=== PATIENT | male | born 1950 | race Caucasian/White ===

== ENCOUNTER → 2018-08-07 09:01 | Outpatient (CLI) | payer OTHER, SELFPAY ==
--- NOTE | 2018-08-07 | DI.MRI.S_ITS ---
PROCEDURE: MR KNEE RT WO CON INDICATIONS: UNILATERAL PRIMARY OSTEOARTHRITIS OF RIGHT KNEE TECHNIQUE: Noncontrast sagittal PD fast spin echo and T2 fast spin echo with fat saturation, sagittal 3-D FLASH with fat saturation; coronal T1 spin echo and PD fast spin echo with fat saturation, and axial PD fast spin echo with fat saturation through the knee. COMPARISON: [facility], CR, XR KNEE ARTHRITIC SERIES BI, 07/23/2018, 10:00. Located Within [facility], , KNEE 3V RIGHT, 07/18/2016, 11:41. FINDINGS: Image quality: Excellent. Menisci: There is medial extrusion of the medial meniscus. There is amorphous signal intensity within the anterior horn, body, and posterior horn of the medial meniscus, demonstrating superior and inferior articular surface extension, indicating severe degenerative tearing. There is linear high signal intensity horizontally traversing the anterior horn lateral meniscus, demonstrating there is extension, indicating horizontal tearing. Cruciate ligaments: The posterior cruciate ligament is intact. There is high-grade partial-thickness tearing of the anterior cruciate ligament. Medial structures: The medial collateral ligament appears intact. There is a small amount of fluid deep to the medial collateral ligament. Visualized portions of the pes anserinus tendons appear normal. Small amount of medial bursal fluid. Lateral structures: The lateral collateral ligament demonstrates a small amount of fluid signal adjacent to its femoral insertion. The long and short heads of the biceps femoris tendon appear intact. The popliteus tendon appears normal. Iliotibial band appears normal. Anterior structures: The quadriceps and patellar tendons appear intact. Mild superolateral patellar subluxation is present. No femoral trochlear dysplasia or ventral trochlear prominence. Moderate edema in the superolateral aspect of the the infrapatellar fat pad. Bones and cartilage: No bone marrow contusions or fractures. There is moderate tricompartmental periarticular osteophyte formation. There is mild ill-defined cooperative we degenerative marrow edema within the subchondral aspects of the medial tibial plateau, central, and lateral tibial plateau, as well as the lateral patellar facet. Severe diffuse articular cartilage loss diffusely overlies the weightbearing aspects of the medial femoral condyle and medial tibial plateau. Mild diffuse articular cartilage loss overlies the weightbearing aspects of the lateral femoral condyle and lateral tibial plateau, as well as the medial and lateral patellar facets. Joint space: There is a small knee joint effusion and a moderate George's cyst. Multiple intra-articular loose bodies are present, the largest of which measures roughly 10 mm within the George's cyst. Normal appearing synovial plicae are incidentally noted. IMPRESSION: 1. Tricompartmental osteoarthritis with associated articular cartilage loss as described above. 2. Severe degenerative tearing of the medial meniscus. 3. Horizontal tearing of the lateral meniscus. 4. Partial-thickness high-grade anterior cruciate ligament tearing. 5. Knee joint effusion, George's cyst, and intra-articular loose bodies 6. Findings consistent with lateral patellofemoral friction syndrome in the appropriate clinical setting. 7. Mild medial bursitis. 8. Mild medial collateral ligament bursitis. 9. Partial-thickness lateral collateral ligament tear. Dictated by: Estela Sepulveda M.D. on 08/07/2018 at 10:29 Approved by: Estela Sepulveda M.D. on 08/07/2018 at 10:43
== END ==
PROVIDERS: PCP Family Medicine; Visit Provider Orthopaedic Surgery
DX: M17.11 Unilateral primary osteoarthritis, right knee (principal); M23.231 Derangement of other medial meniscus due to old tear or injury, right knee; M23.261 Derangement of other lateral meniscus due to old tear or injury, right knee; M23.611 Other spontaneous disruption of anterior cruciate ligament of right knee; M25.461 Effusion, right knee; M71.21 Synovial cyst of popliteal space [Baker], right knee; M23.641 Other spontaneous disruption of lateral collateral ligament of right knee; M71.561 Other bursitis, not elsewhere classified, right knee
CPT/HCPCS: 73721

== ENCOUNTER 2018-09-07 19:10 | Emergency (ER) | payer OTHER, SELFPAY ==
[2018-09-07 19:15] VITALS: BP 120/75; PULSE 87; RESP 15; TEMP 38; O2SAT 94; BMI 31.2
--- NOTE | 2018-09-07 19:19 | DI.RAD.S_ITS ---
PROCEDURE: XR CHEST 2V INDICATIONS: uri sx,fever,cough TECHNIQUE: 2 views of the chest were acquired. COMPARISON: None. FINDINGS: Surgical changes and devices: None. Lungs and pleura: No pleural effusions or pneumothorax. Mild bilateral perihilar pulmonary opacities are noted. There is prominence of the pulmonary arteries bilaterally. Mediastinum: Mediastinal contours are normal. Heart size is normal. Bones and chest wall: No suspicious bony abnormalities. Soft tissues appear unremarkable. IMPRESSION: Mild bilateral perihilar pulmonary opacities favored to represent atelectasis, less likely pneumonia. Dictated by: Ha Vinson M.D. on 09/07/2018 at 21:32 Approved by: Ha Vinson M.D. on 09/07/2018 at 21:34
--- NOTE | 2018-09-07 19:55 | ED_ITS ---
HPI - URI/Sore Throat <NATE Rivera - Last Filed: 09/07/18 22:30> General Chief Complaint: Upper Respiratory Symptoms Stated Complaint: FEVER WEAKNESS Time Seen by Provider: 09/07/18 19:54 Source: patient Mode of arrival: ambulatory Limitations: no limitations History of Present Illness HPI Narrative: 68-year-old male with history of [place] that is a nonsmoker here for complaint of having generalized malaise over the past 4-5 days. He does report of her low-grade fever and generalized body aches. He has had cough and nasal congestion. He is tolerating p.o. fluid intake although he has decreased appetite. His cough has been nonproductive. He denies other illnesses with contact her family members. He denies any chest pain. Related Data Home Medications Medication Instructions Recorded Confirmed aspirin 81 mg tablet,delayed 81 mg PO DAILY 09/07/18 09/07/18 release atorvastatin 40 mg tablet 40 mg PO DAILY 09/07/18 09/07/18 losartan 25 mg tablet 25 mg PO DAILY 09/07/18 09/07/18 metoprolol succinate ER 50 mg 50 mg PO DAILY 09/07/18 09/07/18 tablet,extended release 24 hr Allergies Allergy/AdvReac Type Severity Reaction Status Date / Time No Known Drug Allergies Allergy Verified 09/07/18 19:15 Review of Systems <NATE Rivera - Last Filed: 09/07/18 22:30> Constitutional Denies chills, Reports fever(s), Denies lethargy and Denies weakness Eyes Denies change in vision, Denies eye discharge, Denies irritation and Denies loss of vision ENT Ears, Nose, Mouth, and Throat: Reports nasal congestion Cardiovascular Denies chest pain, Denies irregular heart rhythm, Denies lightheadedness, Denies palpitations, Denies dyspnea, Denies dyspnea on exertion and Denies orthopnea Respiratory Denies cough, Denies dyspnea, Denies dyspnea on exertion and Denies wheezing Gastrointestinal Gastrointestinal: Denies abdominal pain, Denies change in bowel habits, Denies diarrhea, Denies nausea and Denies vomiting Genitourinary Denies hematuria, Denies flank pain, Denies urinary incontinence and Denies urinary urgency Musculoskeletal Denies back pain, Denies muscle weakness, Denies numbness and Denies tingling Integumentary/Breasts Denies pruritus, Denies erythema, Denies rash and Denies wounds Neurologic Denies confusion, Denies loss of vision, Denies numbness, Denies tingling and Denies weakness Psychiatric Denies anxiety, Denies confusion, Denies depression, Denies homicidal ideation and Denies suicidal ideation Endocrine Denies palpitations Hematologic/Lymphatic Denies easy bruising Allergic/Immunologic Denies wheezing Exam <NATE Rivera - Last Filed: 09/07/18 22:30> Initial Vital Signs Initial Vital Signs: Vital Signs Temperature 100.4 F H 09/07/18 19:15 Pulse Rate 87 09/07/18 19:15 Respiratory Rate 15 09/07/18 19:15 Blood Pressure 120/75 09/07/18 19:15 Pulse Oximetry 94 09/07/18 19:15 Const General: cooperative and well developed Nutritional Appearance: well nourished Orientation: alert, awake, oriented x3 and not confused HENNH Head: normocephalic and atraumatic Nose: external nose normal and No nasal discharge Face and sinus: sinus tenderness and dry mucous membranes Mouth: oral mucosae normal and moist mucous membranes Teeth and gingiva: dentition normal Throat: posterior oropharynx normal Eyes Conjunctivae: conjunctivae normal Sclera: sclerae normal Pupils: PERRL EOM: EOM intact bilaterally Resp Effort & Inspection: normal respiratory effort, able to speak in complete sentences, no respiratory distress and no use of accessory muscles Auscultation: clear to auscultation bilaterally, no rales, no rhonchi and no wheezes Cardio Rate: regular rate Rhythm: regular rhythm Heart Sounds: no click, no gallops, no murmurs and no rubs Pulses: normal peripheral pulses Skin General: no rashes or lesions noted, No jaundice and No petechiae Neuro General: alert, oriented x3, gait normal and no focal motor deficits Speech: speech normal <Monroe Swan MD - Last Filed: 09/08/18 05:09> Initial Vital Signs Initial Vital Signs: Vital Signs Temperature 100.4 F H 09/07/18 19:15 Pulse Rate 87 09/07/18 19:15 Respiratory Rate 15 09/07/18 19:15 Blood Pressure 120/75 09/07/18 19:15 Pulse Oximetry 94 09/07/18 19:15 Course <NATE Rivera - Last Filed: 09/07/18 22:30> Orders Ordered: ED Orders 09/07/18 19:19 XR chest 2V Stat Influenza A and B by PCR Rapid Stat Vital Signs - 8 hr 09/07/18 21:30 09/07/18 22:07 Pulse Rate 89 72 Respiratory Rate 20 18 Blood Pressure 111/54 L Blood Pressure [Left Arm] 111/59 L Pulse Oximetry 99 94 <Monroe Swan MD - Last Filed: 09/08/18 05:09> Orders Ordered: ED Orders 09/07/18 19:19 XR chest 2V Stat Influenza A and B by PCR Rapid Stat Vital Signs - 8 hr 09/07/18 21:30 09/07/18 22:07 Pulse Rate 89 72 Respiratory Rate 20 18 Blood Pressure 111/54 L Blood Pressure [Left Arm] 111/59 L Pulse Oximetry 99 94 MDM - URI/Sore Throat <NATE Rivera - Last Filed: 09/07/18 22:30> Lab Data Lab Results 09/07/18 Range/Units 19:19 Influenza A & B (PCR) Positive, type a A (Negative) Imaging Data Chest x-ray: Radiologist's impression: [place] [address] XRay Report Signed Patient: Louie Rodriguez JMR#: [id number] : 1950Acct:[id number] Age/Sex: 68 / MDate of Service: 09/07/18 Loc: ED Accession Number: [id number] Procedure: XR chest 2V Ordering Provider: Monroe Swan M.D. PROCEDURE: XR CHEST 2V INDICATIONS: uri sx,fever,cough TECHNIQUE: 2 views of the chest were acquired. COMPARISON: None. FINDINGS: Surgical changes and devices: None. Lungs and pleura: No pleural effusions or pneumothorax. Mild bilateral perihilar pulmonary opacities are noted. There is prominence of the pulmonary arteries bilaterally. Mediastinum: Mediastinal contours are normal. Heart size is normal. Bones and chest wall: No suspicious bony abnormalities. Soft tissues appear unremarkable. IMPRESSION: Mild bilateral perihilar pulmonary opacities favored to represent atelectasis, less likely pneumonia. Dictated by: Ha Vinson M.D. on 09/07/2018 at 21:32 Approved by: Ha Vinson M.D. on 09/07/2018 at 21:34 [facility] Narrative Medical decision making narrative: Chest x-ray was obtained was negative for signs of pneumonia. Flu swab was obtained and was positive for flu A. Signs and symptoms secondary to a influenza. illness over the past 4-5 days will not give and antivirals at this time. [id number] Tylenol Motrin as needed for any disco mfort. Zofran is prescribed to help with any nausea. Plenty of fluids and rest. Follow up with primary care provider 1 week. For any worsening symptoms return to the emergency room. <Monroe Swan MD - Last Filed: 09/08/18 05:09> Lab Data Lab Results 09/07/18 Range/Units 19:19 Influenza A & B (PCR) Positive, type a A (Negative) Discharge Plan Departure Patient Disposition: Home Clinical Impression: Influenza A Discharge Date/Time: 09/07/18 22:08 Interventions: ED Discharge Assessment Last Done: 09/07/18 22:07 Instructions: DI for Influenza -- Adult Activity Restrictions/Additional Instructions: chest x-ray was obtained was negative for pneumonia. Influenza swab was obtained and was positive for influenza A. Signs and symptoms are secondary to the influenza. Influenza will take time to resolve. Supportive care with plenty of fluids and rest. [id number] Tylenol or Motrin as needed for discomfort and fever. Saline irrigation and hot showers to help with nasal congestion. Follow up with her primary care provider in 1 week for re- evaluation. Limit exposure to other people to prevent spread. For any worsening symptoms return emergency room. Prescriptions: No Action atorvastatin 40 mg tablet 40 mg PO DAILY RF: 0 metoprolol succinate 50 mg tablet extended release 24 hr 50 mg PO DAILY RF: 0 aspirin [Adult Low Dose Aspirin] 81 mg tablet,delayed release (DR/EC) 81 mg PO DAILY RF: 0 losartan 25 mg tablet 25 mg PO DAILY RF: 0 Referrals: Dick Jara MD [Primary Care Provider] - <Monroe Swan MD - Last Filed: 09/08/18 05:09> Cosign ED Attending Cosignature Attestation: I was present in the ER at the time this patient's care. I was available for verbal consultation or to see the patient directly if requested. I agree with the assessment and treatment plan.
[2018-09-07 20:30] VITALS: BP 120/64; PULSE 80; RESP 22; O2SAT 92
[2018-09-07 21:30] VITALS: BP 111/59; PULSE 89; RESP 20; O2SAT 99
[2018-09-07 22:07] VITALS: BP 111/54; PULSE 72; RESP 18; O2SAT 94
== END 2018-09-07 22:08 | disposition home or self-care (01) ==
PROVIDERS: Emergency Medicine; Emergency Provider Nurse Practitioner Family; PCP Family Medicine
DX: J10.1 Influenza due to other identified influenza virus with other respiratory manifestations (principal)
CPT/HCPCS: 71046; 87400; 99282; 99284

== ENCOUNTER 2018-09-14 10:08 | Inpatient (IN) | payer OTHER, SELFPAY ==
[2018-09-14] VITALS (17 sets, daily range): BP systolic 88–134; BP diastolic 53–89; PULSE 73–802; RESP 14–79; TEMP 36.1–36.7; O2SAT 90–99; BMI 29.4; BMI 29.2
--- NOTE | 2018-09-14 10:15 | DI.RAD.S_ITS ---
PROCEDURE: XR CHEST 1V INDICATIONS: dyspnea, recent flu A TECHNIQUE: One view of the chest was acquired. COMPARISON: [facility], CR, XR CHEST 2V, 09/07/2018, 19:22. FINDINGS: Surgical changes and devices: None. Lungs and pleura: Interval patchy opacities are present overlying the right middle lobe as well as the lingula. Coarsened bibasilar opacities are present. Minimal increased vascularity. Mediastinum: Mediastinal contours appear normal. Heart size is normal. Bones and chest wall: No suspicious bony lesions. Overlying soft tissues appear unremarkable. IMPRESSION: Interval development of patchy bilateral and bibasilar coarsened opacities. This could represent infection/inflammation such as multifocal pneumonia. However, it is noted there is mild appearance of increased pulmonary vascularity. This could also represent focal edema. Recommend clinical correlation and interval followup to document resolution and exclude presence of underlying mass lesion. Dictated by: Dayana Andrade M.D. on 09/14/2018 at 10:44 Approved by: Dayana Andrade M.D. on 09/14/2018 at 10:45
[2018-09-14 10:35] LABS: pH ABG 7.55 (7.35-7.45)
[2018-09-14 10:36] LABS: Fractionated Inspired Oxygen 0.21; HCO3 ABG 19 mmol/L (22-26); Oxygen Saturation ABG 96 % (95-100); PCO2 ABG 21.8 mmHg (35-45); PO2 ABG 67 mmHg (80-100); TCO2 ABG 20 mmol/L (21-31)
[2018-09-14] MEDS: levoFLOXacin 750 MG/150 ML PIGGYBACK 100 MG IV (10:41)
[2018-09-14] MEDS: SODIUM CHLORIDE 0.9% 1,000 ML 1000 ML IV (10:42)
[2018-09-14 10:43] LABS: Add Manual Diff / Slide Review NO; Basophils Percent Auto 0.5 % (0-2); Eosinophils Percent Auto 0.1 % (2-4); Hemoglobin 16.1 g/dL (13.5-17.5); Lymphocytes Percent Auto 19.9 % (25-40); Mean Corpuscular HGB Conc 33.6 % (30-36); Mean Corpuscular Hemoglobin 30.9 PG (26-34); Monocytes Percent Auto 10.1 % (3-14); Neutrophils Absolute Auto 3100 /uL (1500-7000); Neutrophils Percent Auto 69.4 % (50-75); Platelet Count 245 X10^3/uL (150-400); Red Blood Cell Count 5.22 X10^6/uL (4.5-5.9); Red Cell Distribution Width 13.5 % (11.6-14.8); White Blood Cell Count 4.5 X10^3/uL (4.5-11.0)
[2018-09-14 10:48] LABS: Prothrombin Time 12.1 SECONDS (10.1-12.7)
[2018-09-14 10:49] LABS: Lactate (Lactic Acid) 2.2 mmol/L (0.7-2.1)
[2018-09-14 10:51] LABS: D Dimer 497 ng/mL (<230); PTT Partial Thromboplastin Tim 24 SECONDS (26.4-36.2)
--- NOTE | 2018-09-14 11:02 | ED.SOB ---
HPI - SOB/Dyspnea General Chief Complaint: Shortness of Breath/Dyspnea Stated Complaint: TROUBLE BREATHING Time Seen by Provider: 09/14/18 10:09 Source: patient and family Mode of arrival: ambulatory Limitations: no limitations History of Present Illness 68-year-old nonsmoker presents with in the chief complaint of gradually worsening shortness of breath over the past day or 2. He has had cough with yellowish sputum and states he is more short of breath with exertion or talking. He denies any change of shortness of breath with position. He denies any swelling of legs. He has got no chest pain but has had low-grade subjective fever. Patient was seen and evaluated on September 07 and diagnosed with flu type a but the symptoms have been present long enough that he was not prescribed medication. MD Complaint: shortness of breath and cough Onset (ago): day(s) Context: recent illness Severity: moderate Consistency/Duration: constant Relieving factors: rest Exacerbating factors: exertion Known history of: other (CAD, Flu A) Treatment prior to arrival: none Related Data Home oxygen amount: none Home Medications Medication Instructions Recorded Confirmed aspirin 81 mg tablet,delayed 81 mg PO DAILY 09/07/18 09/14/18 release atorvastatin 40 mg tablet 40 mg PO BEDTIME 09/07/18 09/14/18 losartan 25 mg tablet 25 - 50 mg PO BEDTIME 09/07/18 09/14/18 metoprolol succinate ER 50 mg 50 mg PO QAM 09/07/18 09/14/18 tablet,extended release 24 hr acetaminophen [Tylenol Extra 1,000 mg PO Q6H PRN 09/11/18 09/14/18 Strength] ibuprofen 400 mg PO TID 09/11/18 09/14/18 Allergies Allergy/AdvReac Type Severity Reaction Status Date / Time No Known Drug Allergies Allergy Verified 09/14/18 10:45 Review of Systems Review of Systems All systems reviewed & are unremarkable except as noted in HPI and below Constitutional Denies chills, Denies fever(s), Denies lethargy and Denies weakness Eyes Denies change in vision, Denies eye discharge, Denies irritation and Denies loss of vision ENT Ears, Nose, Mouth, and Throat: Denies change in voice, Denies neck pain and Denies sore throat Cardiovascular Denies chest pain, Denies irregular heart rhythm, Denies lightheadedness, Denies palpitations, Reports dyspnea, Reports dyspnea on exertion and Denies orthopnea Respiratory Reports cough, Reports dyspnea, Reports dyspnea on exertion and Denies wheezing Gastrointestinal Gastrointestinal: Denies abdominal pain, Denies change in bowel habits, Denies diarrhea, Denies nausea and Denies vomiting Genitourinary Denies hematuria, Denies flank pain, Denies urinary incontinence and Denies urinary urgency Musculoskeletal Denies neck pain Integumentary/Breasts Denies pruritus, Denies erythema, Denies rash and Denies wounds Neurologic Denies confusion, Denies loss of vision and Denies weakness Psychiatric Denies anxiety, Denies confusion, Denies depression, Denies homicidal ideation and Denies suicidal ideation Endocrine Denies palpitations Hematologic/Lymphatic Denies easy bruising Allergic/Immunologic Denies wheezing [facility] Medical History ASHD (arteriosclerotic heart disease) (Acute) Anterior myocardial infarction (Acute ~2010) CAD (coronary artery disease) (Acute) HTN (hypertension) (Acute) Hyperlipidemia (Acute) Influenza A (Acute 09/07/18) Numbness (Acute) Paroxysmal SVT (supraventricular tachycardia) (Acute) Presence of bare metal stent in LAD coronary artery (Acute ~2010) Surgical History Hx of hernia repair (Acute) Hx of right knee surgery (Acute) Hx of tonsillectomy (Acute) Social History Smoking Status: Never smoker alcohol intake: never Exam Narrative Exam Narrative: GENERAL: Ill-appearing 68-year-old male tachypneic with conversational dyspnea HEAD: Atraumatic. Normocephalic. No temporal or scalp tenderness. EYES: Pupils equal round and reactive. Extraocular motions intact. No scleral icterus. No injection or drainage. ENT: Nose without bleeding, purulent drainage or septal hematoma. Throat without erythema, tonsillar hypertrophy or exudate. Uvula midline. Airway patent. NECK: Trachea midline. No JVD or lymphadenopathy. Supple, nontender, no meningeal signs. CARDIOVASCULAR: Regular rate and irregular rhythm without murmurs, gallops, or rubs. RESPIRATORY: crackles in R lung. Increased work of breathing, tachypnea, conversational dyspnea, use of accessory muscles GASTROINTESTINAL: Abdomen soft, non-tender, nondistended. No hepato-splenomegaly, or palpable masses. No guarding. EXTREMITIES: No clubbing, cyanosis, or edema. No joint tenderness, effusion, or edema noted. BACK: Nontender without deformity or crepitance. No flank tenderness. NEURO: AOx3. SKIN: No rash or erythema. Initial Vital Signs Initial Vital Signs: Vital Signs Pulse Rate 90 09/14/18 10:10 Respiratory Rate 40 H 09/14/18 10:10 Blood Pressure 117/77 09/14/18 10:10 Pulse Oximetry 94 09/14/18 10:10 Course Course Narrative: Blood pressure slowly trending down, initially 117 and now 92 at 1100. Fluids increased with goal of 30mL/kg. Orders Ordered: ED Orders 09/14/18 10:14 Consult to Respiratory Therapy Evaluate & Treat EKG-12 Lead Stat 09/14/18 10:15 XR chest 1V Stat 09/14/18 10:24 Arterial Blood Gas Stat 09/14/18 10:30 B Type Natriuretic Peptide Stat Basic Metabolic Panel Stat Blood Culture Stat Complete Blood Count AUTO DIFF Stat D Dimer Stat Lactate (Lactic Acid) Stat Magnesium Stat Partial Thromboplastin Time Stat Procalcitonin Stat Prothrombin Time INR Stat Troponin & CK Cardiac Panel Stat Sodium Chloride (Normal Saline 0.9%) 2,949 mls @ 983 mls/hr 30 ml/kg infuse over 3 hr (2949 ml) IV CONT LORAINE Last Admin: 09/14/18 12:12 Dose: 983 mls/hr Discontinued Medications Levofloxacin (Levaquin) 750 mg in 150 mls @ 100 mls/hr IV NOW ONE Stop: 09/14/18 11:44 Last Infusion: 09/14/18 12:11 Dose: 0 mls/hr Admin: 09/14/18 10:41 Dose: 100 mls/hr Sodium Chloride (Normal Saline 0.9%) 1,000 mls @ 1,000 mls/hr IV BOLUS ONE Stop: 09/14/18 11:41 Last Admin: 09/14/18 10:42 Dose: 1,000 mls/hr Ketorolac Tromethamine (Toradol) 15 mg IV NOW ONE Stop: 09/14/18 12:13 Last Admin: 09/14/18 12:14 Dose: 15 mg Vital Signs - 8 hr 09/14/18 10:10 09/14/18 10:30 09/14/18 10:51 Temperature 97.8 F Pulse Rate 90 83 802 H Respiratory Rate 40 H 33 H 31 H Blood Pressure 117/77 Blood Pressure [Left Arm] 96/69 97/70 Pulse Oximetry 94 97 98 09/14/18 11:00 09/14/18 11:10 09/14/18 11:20 Temperature Pulse Rate 88 75 80 Respiratory Rate 28 H 28 H 29 H Blood Pressure Blood Pressure [Left Arm] 92/63 98/57 L 109/82 Pulse Oximetry 99 95 95 09/14/18 11:50 09/14/18 11:58 09/14/18 12:04 Temperature Pulse Rate 75 73 76 Respiratory Rate 30 H 79 H Blood Pressure Blood Pressure [Left Arm] 88/58 L 109/89 101/53 L Pulse Oximetry 98 96 09/14/18 12:10 Temperature Pulse Rate 83 Respiratory Rate 26 H Blood Pressure Blood Pressure [Left Arm] 109/61 Pulse Oximetry 97 MDM - SOB/Dyspnea Differential Diagnosis Likely congestive heart failure, community acquired pneumonia, asthma with exacerbation and pulmonary embolism Medical Records Attestation: I reviewed the patient's medical records. Lab Data Attestation: I reviewed the patient's lab results. Result diagrams: 09/14/18 10:30 09/14/18 10:30 Lab Results 09/14/18 09/14/18 09/14/18 Range/Units 10:24 10:30 10:30 WBC 4.5 (4.5-11.0) X10^3/uL RBC 5.22 (4.5-5.9) X10^6/uL Hgb 16.1 (13.5-17.5) g/dL Hct 48.0 (41-53) % MCV 92.0 (80-100) fL MCH 30.9 (26-34) PG MCHC 33.6 (30-36) % RDW 13.5 (11.6-14.8) % Plt Count 245 (150-400) X10^3/uL Neut % (Auto) 69.4 (50-75) % Lymph % (Auto) 19.9 L (25-40) % [facility] % (Auto) 10.1 (3-14) % Eos % (Auto) 0.1 L (2-4) % Baso % (Auto) 0.5 (0-2) % Neut # (Auto) 3100 (4250-3591) /uL PT 12.1 (10.1-12.7) SECONDS INR 1.0 (0.9-1.3) APTT 24 L (26.4-36.2) SECONDS D-Dimer 497 H (<230) ng/mL ABG pH 7.55 H (7.35-7.45) ABG pCO2 21.8 L* (35-45) mmHg ABG pO2 67 L (80-100) mmHg ABG HCO3 19 L (22-26) mmol/L ABG Total CO2 20 L (21-31) mmol/L ABG O2 Saturation 96 (95-100) % ABG Base Excess -3.0 L (-2-2) mmol/L FiO2 0.21 Sodium (137-145) mmol/L Potassium (3.4-5.1) mmol/L Chloride (98-107) mmol/L Carbon Dioxide (22-32) mmol/L BUN (9-20) mg/dL Creatinine (0.66-1.25) mg/dL Estimated GFR (>60) mL/min BUN/Creatinine Ratio (6-22) Glucose (80-110) mg/dL Lactate (0.7-2.1) mmol/L Calcium (8.4-10.2) mg/dL Magnesium (1.6-2.3) mg/dL Total Creatine Kinase (55-170) U/L CK-MB (CK-2) (<2.37) ng/mL CK-MB (CK-2) Rel Index (1.5-5.0) % Troponin I (0.01-0.034) ng/mL B-Natriuretic Peptide 122 H (<100) Procalcitonin (<0.5) ng/mL 09/14/18 09/14/18 09/14/18 Range/Units 10:30 10:30 10:30 WBC (4.5-11.0) X10^3/uL RBC (4.5-5.9) X10^6/uL Hgb (13.5-17.5) g/dL Hct (41-53) % MCV (80-100) fL MCH (26-34) PG MCHC (30-36) % RDW (11.6-14.8) % Plt Count (150-400) X10^3/uL Neut % (Auto) (50-75) % Lymph % (Auto) (25-40) % [facility] % (Auto) (3-14) % Eos % (Auto) (2-4) % Baso % (Auto) (0-2) % Neut # (Auto) (1447-3587) /uL PT (10.1-12.7) SECONDS INR (0.9-1.3) APTT (26.4-36.2) SECONDS D-Dimer (<230) ng/mL ABG pH (7.35-7.45) ABG pCO2 (35-45) mmHg ABG pO2 (80-100) mmHg ABG HCO3 (22-26) mmol/L ABG Total CO2 (21-31) mmol/L ABG O2 Saturation (95-100) % ABG Base Excess (-2-2) mmol/L FiO2 Sodium 135 L (137-145) mmol/L Potassium 3.8 (3.4-5.1) mmol/L Chloride 97 L (98-107) mmol/L Carbon Dioxide 26 (22-32) mmol/L BUN 13 (9-20) mg/dL Creatinine 0.80 (0.66-1.25) mg/dL Estimated GFR > 60.0 (>60) mL/min BUN/Creatinine Ratio 16.3 (6-22) Glucose 100 (80-110) mg/dL Lactate 2.2 H (0.7-2.1) mmol/L Calcium 8.5 (8.4-10.2) mg/dL Magnesium 2.1 (1.6-2.3) mg/dL Total Creatine Kinase 97 (55-170) U/L CK-MB (CK-2) 0.97 (<2.37) ng/mL CK-MB (CK-2) Rel Index 1.0 L (1.5-5.0) % Troponin I 0.016 (0.01-0.034) ng/mL B-Natriuretic Peptide (<100) Procalcitonin 0.05 (<0.5) ng/mL ABG Data ABG results: Acute uncompensated primary respiratory alkalosis Attestation: I personally reviewed and interpreted this ABG as follows: Imaging Data Chest x-ray: Radiologist's impression: [place] [id number] [place] [id number] XRay Report Signed Patient: Louie Rodriguez MR#: [id number] : 1950 Acct:[id number] Age/Sex: 68 / M Date of Service: 09/14/18 Loc: ED Accession Number: [id number] Procedure: XR chest 1V Ordering Provider: Chuy Perla D.O. PROCEDURE: XR CHEST 1V INDICATIONS: dyspnea, recent flu A TECHNIQUE: One view of the chest was acquired. COMPARISON: [facility], CR, XR CHEST 2V, 09/07/2018, 19:22. FINDINGS: Surgical changes and devices: None. Lungs and pleura: Interval patchy opacities are present overlying the right middle lobe as well as the lingula. Coarsened bibasilar opacities are present. Minimal increased vascularity. Mediastinum: Mediastinal contours appear normal. Heart size is normal. Bones and chest wall: No suspicious bony lesions. Overlying soft tissues appear unremarkable. IMPRESSION: Interval development of patchy bilateral and bibasilar coarsened opacities. This could represent infection/inflammation such as multifocal pneumonia. However, it is noted there is mild appearance of increased pulmonary vascularity. This could also represent focal edema. Recommend clinical correlation and interval followup to document resolution and exclude presence of underlying mass lesion. Dictated by: Dayana Andrade M.D. on 09/14/2018 at 10:44 Approved by: Dayana Andrade M.D. on 09/14/2018 at 10:45 ECG Data Attestation: I personally reviewed and interpreted this ECG as follows: Interpretation: Atrial Fib, HR in 80s, no ischemia. No ST change or T wave inversions MDM Narrative Medical decision making narrative: Patient with significant shortness of breath presents in respiratory distress. No hypoxia or tachycardia nor fever. Crackles on exam and x-ray would suggest pneumonia. Mildly elevated lactate. EKG notes AFib. D-dimer slightly elevated but when corrected for age is considered negative, therefore no CT angiogram pursued. Discharge Plan Departure Patient Disposition: Admitted As Inpatient Clinical Impression: Community acquired pneumonia, Influenza A Admit Date/Time: 09/14/18 12:05 Admit Provider: Eamon Feldman
[2018-09-14 11:05] LABS: B Type Natriuretic Peptide 122 (<100)
--- NOTE | 2018-09-14 11:09 | ED_ITS ---
HPI - SOB/Dyspnea General Chief Complaint: Shortness of Breath/Dyspnea Stated Complaint: TROUBLE BREATHING Time Seen by Provider: 09/14/18 10:09 Source: patient and family Mode of arrival: ambulatory Limitations: no limitations History of Present Illness 68-year-old nonsmoker presents with in the chief complaint of gradually worsening shortness of breath over the past day or 2. He has had cough with yellowish sputum and states he is more short of breath with exertion or talking. He denies any change of shortness of breath with position. He denies any swelling of legs. He has got no chest pain but has had low-grade subjective fever. Patient was seen and evaluated on September 07 and diagnosed with flu type a but the symptoms have been present long enough that he was not prescribed medication. MD Complaint: shortness of breath and cough Onset (ago): day(s) Context: recent illness Severity: moderate Consistency/Duration: constant Relieving factors: rest Exacerbating factors: exertion Known history of: other (CAD, Flu A) Treatment prior to arrival: none Related Data Home oxygen amount: none Home Medications Medication Instructions Recorded Confirmed aspirin 81 mg tablet,delayed 81 mg PO DAILY 09/07/18 09/14/18 release atorvastatin 40 mg tablet 40 mg PO BEDTIME 09/07/18 09/14/18 losartan 25 mg tablet 25 - 50 mg PO BEDTIME 09/07/18 09/14/18 metoprolol succinate ER 50 mg 50 mg PO QAM 09/07/18 09/14/18 tablet,extended release 24 hr acetaminophen [Tylenol Extra 1,000 mg PO Q6H PRN 09/11/18 09/14/18 Strength] ibuprofen 400 mg PO TID 09/11/18 09/14/18 Allergies Allergy/AdvReac Type Severity Reaction Status Date / Time No Known Drug Allergies Allergy Verified 09/14/18 10:45 Review of Systems Review of Systems All systems reviewed & are unremarkable except as noted in HPI and below Constitutional Denies chills, Denies fever(s), Denies lethargy and Denies weakness Eyes Denies change in vision, Denies eye discharge, Denies irritation and Denies loss of vision ENT Ears, Nose, Mouth, and Throat: Denies change in voice, Denies neck pain and Denies sore throat Cardiovascular Denies chest pain, Denies irregular heart rhythm, Denies lightheadedness, Denies palpitations, Reports dyspnea, Reports dyspnea on exertion and Denies orthopnea Respiratory Reports cough, Reports dyspnea, Reports dyspnea on exertion and Denies wheezing Gastrointestinal Gastrointestinal: Denies abdominal pain, Denies change in bowel habits, Denies diarrhea, Denies nausea and Denies vomiting Genitourinary Denies hematuria, Denies flank pain, Denies urinary incontinence and Denies urinary urgency Musculoskeletal Denies neck pain Integumentary/Breasts Denies pruritus, Denies erythema, Denies rash and Denies wounds Neurologic Denies confusion, Denies loss of vision and Denies weakness Psychiatric Denies anxiety, Denies confusion, Denies depression, Denies homicidal ideation and Denies suicidal ideation Endocrine Denies palpitations Hematologic/Lymphatic Denies easy bruising Allergic/Immunologic Denies wheezing [facility] Medical History ASHD (arteriosclerotic heart disease) (Acute) Anterior myocardial infarction (Acute ~2010) CAD (coronary artery disease) (Acute) HTN (hypertension) (Acute) Hyperlipidemia (Acute) Influenza A (Acute 09/07/18) Numbness (Acute) Paroxysmal SVT (supraventricular tachycardia) (Acute) Presence of bare metal stent in LAD coronary artery (Acute ~2010) Surgical History Hx of hernia repair (Acute) Hx of right knee surgery (Acute) Hx of tonsillectomy (Acute) Social History Smoking Status: Never smoker alcohol intake: never Exam Narrative Exam Narrative: GENERAL: Ill-appearing 68-year-old male tachypneic with conversational dyspnea HEAD: Atraumatic. Normocephalic. No temporal or scalp tenderness. EYES: Pupils equal round and reactive. Extraocular motions intact. No scleral icterus. No injection or drainage. ENT: Nose without bleeding, purulent drainage or septal hematoma. Throat without erythema, tonsillar hypertrophy or exudate. Uvula midline. Airway patent. NECK: Trachea midline. No JVD or lymphadenopathy. Supple, nontender, no meningeal signs. CARDIOVASCULAR: Regular rate and irregular rhythm without murmurs, gallops, or rubs. RESPIRATORY: crackles in R lung. Increased work of breathing, tachypnea, conversational dyspnea, use of accessory muscles GASTROINTESTINAL: Abdomen soft, non-tender, nondistended. No hepato-splenomegaly , or palpable masses. No guarding. EXTREMITIES: No clubbing, cyanosis, or edema. No joint tenderness, effusion, or edema noted. BACK: Nontender without deformity or crepitance. No flank tenderness. NEURO: AOx3. SKIN: No rash or erythema. Initial Vital Signs Initial Vital Signs: Vital Signs Pulse Rate 90 09/14/18 10:10 Respiratory Rate 40 H 09/14/18 10:10 Blood Pressure 117/77 09/14/18 10:10 Pulse Oximetry 94 09/14/18 10:10 Course Course Narrative: Blood pressure slowly trending down, initially 117 and now 92 at 1100. Fluids increased with goal of 30mL/kg. Orders Ordered: ED Orders 09/14/18 10:14 Consult to Respiratory Therapy Evaluate & Treat EKG-12 Lead Stat 09/14/18 10:15 XR chest 1V Stat 09/14/18 10:24 Arterial Blood Gas Stat 09/14/18 10:30 B Type Natriuretic Peptide Stat Basic Metabolic Panel Stat Blood Culture Stat Complete Blood Count AUTO DIFF Stat D Dimer Stat Lactate (Lactic Acid) Stat Magnesium Stat Partial Thromboplastin Time Stat Procalcitonin Stat Prothrombin Time INR Stat Troponin & CK Cardiac Panel Stat Sodium Chloride (Normal Saline 0.9%) 2,949 mls @ 983 mls/hr 30 ml/kg infuse over 3 hr (2949 ml) IV CONT LORAINE Last Admin: 09/14/18 12:12 Dose: 983 mls/hr Discontinued Medications Levofloxacin (Levaquin) 750 mg in 150 mls @ 100 mls/hr IV NOW ONE Stop: 09/14/18 11:44 Last Infusion: 09/14/18 12:11 Dose: 0 mls/hr Admin: 09/14/18 10:41 Dose: 100 mls/hr Sodium Chloride (Normal Saline 0.9%) 1,000 mls @ 1,000 mls/hr IV BOLUS ONE Stop: 09/14/18 11:41 Last Admin: 09/14/18 10:42 Dose: 1,000 mls/hr Ketorolac Tromethamine (Toradol) 15 mg IV NOW ONE Stop: 09/14/18 12:13 Last Admin: 09/14/18 12:14 Dose: 15 mg Vital Signs - 8 hr 09/14/18 10:10 09/14/18 10:30 09/14/18 10:51 Temperature 97.8 F Pulse Rate 90 83 802 H Respiratory Rate 40 H 33 H 31 H Blood Pressure 117/77 Blood Pressure [Left Arm] 96/69 97/70 Pulse Oximetry 94 97 98 09/14/18 11:00 09/14/18 11:10 09/14/18 11:20 Temperature Pulse Rate 88 75 80 Respiratory Rate 28 H 28 H 29 H Blood Pressure Blood Pressure [Left Arm] 92/63 98/57 L 109/82 Pulse Oximetry 99 95 95 09/14/18 11:50 09/14/18 11:58 09/14/18 12:04 Temperature Pulse Rate 75 73 76 Respiratory Rate 30 H 79 H Blood Pressure Blood Pressure [Left Arm] 88/58 L 109/89 101/53 L Pulse Oximetry 98 96 09/14/18 12:10 Temperature Pulse Rate 83 Respiratory Rate 26 H Blood Pressure Blood Pressure [Left Arm] 109/61 Pulse Oximetry 97 MDM - SOB/Dyspnea Differential Diagnosis Likely congestive heart failure, community acquired pneumonia, asthma with exacerbation and pulmonary embolism Medical Records Attestation: I reviewed the patient's medical records. Lab Data Attestation: I reviewed the patient's lab results. Result diagrams: 09/14/18 10:30 09/14/18 10:30 Lab Results 09/14/18 09/14/18 09/14/18 Range/Units 10:24 10:30 10:30 WBC 4.5 (4.5-11.0) X10^3/uL RBC 5.22 (4.5-5.9) X10^6/uL Hgb 16.1 (13.5-17.5) g/dL Hct 48.0 (41-53) % MCV 92.0 (80-100) fL MCH 30.9 (26-34) PG MCHC 33.6 (30-36) % RDW 13.5 (11.6-14.8) % Plt Count 245 (150-400) X10^3/uL Neut % (Auto) 69.4 (50-75) % Lymph % (Auto) 19.9 L (25-40) % [place] % (Auto) 10.1 (3-14) % Eos % (Auto) 0.1 L (2-4) % Baso % (Auto) 0.5 (0-2) % Neut # (Auto) 3100 (3261-0216) /uL PT 12.1 (10.1-12.7) SECONDS INR 1.0 (0.9-1.3) APTT 24 L (26.4-36.2) SECONDS D-Dimer 497 H (<230) ng/mL ABG pH 7.55 H (7.35-7.45) ABG pCO2 21.8 L* (35-45) mmHg ABG pO2 67 L (80-100) mmHg ABG HCO3 19 L (22-26) mmol/L ABG Total CO2 20 L (21-31) mmol/L ABG O2 Saturation 96 (95-100) % ABG Base Excess -3.0 L (-2-2) mmol/L FiO2 0.21 Sodium (137-145) mmol/L Potassium (3.4-5.1) mmol/L Chloride (98-107) mmol/L Carbon Dioxide (22-32) mmol/L BUN (9-20) mg/dL Creatinine (0.66-1.25) mg/dL Estimated GFR (>60) mL/min BUN/Creatinine Ratio (6-22) Glucose (80-110) mg/dL Lactate (0.7-2.1) mmol/L Calcium (8.4-10.2) mg/dL Magnesium (1.6-2.3) mg/dL Total Creatine Kinase (55-170) U/L CK-MB (CK-2) (<2.37) ng/mL CK-MB (CK-2) Rel Index (1.5-5.0) % Troponin I (0.01-0.034) ng/mL B-Natriuretic Peptide 122 H (<100) Procalcitonin (<0.5) ng/mL 09/14/18 09/14/18 09/14/18 Range/Units 10:30 10:30 10:30 WBC (4.5-11.0) X10^3/uL RBC (4.5-5.9) X10^6/uL Hgb (13.5-17.5) g/dL Hct (41-53) % MCV (80-100) fL MCH (26-34) PG MCHC (30-36) % RDW (11.6-14.8) % Plt Count (150-400) X10^3/uL Neut % (Auto) (50-75) % Lymph % (Auto) (25-40) % [place] % (Auto) (3-14) % Eos % (Auto) (2-4) % Baso % (Auto) (0-2) % Neut # (Auto) (2103-0586) /uL PT (10.1-12.7) SECONDS INR (0.9-1.3) APTT (26.4-36.2) SECONDS D-Dimer (<230) ng/mL ABG pH (7.35-7.45) ABG pCO2 (35-45) mmHg ABG pO2 (80-100) mmHg ABG HCO3 (22-26) mmol/L ABG Total CO2 (21-31) mmol/L ABG O2 Saturation (95-100) % ABG Base Excess (-2-2) mmol/L FiO2 Sodium 135 L (137-145) mmol/L Potassium 3.8 (3.4-5.1) mmol/L Chloride 97 L (98-107) mmol/L Carbon Dioxide 26 (22-32) mmol/L BUN 13 (9-20) mg/dL Creatinine 0.80 (0.66-1.25) mg/dL Estimated GFR > 60.0 (>60) mL/min BUN/Creatinine Ratio 16.3 (6-22) Glucose 100 (80-110) mg/dL Lactate 2.2 H (0.7-2.1) mmol/L Calcium 8.5 (8.4-10.2) mg/dL Magnesium 2.1 (1.6-2.3) mg/dL Total Creatine Kinase 97 (55-170) U/L CK-MB (CK-2) 0.97 (<2.37) ng/mL CK-MB (CK-2) Rel Index 1.0 L (1.5-5.0) % Troponin I 0.016 (0.01-0.034) ng/mL B-Natriuretic Peptide (<100) Procalcitonin 0.05 (<0.5) ng/mL ABG Data ABG results: Acute uncompensated primary respiratory alkalosis Attestation: I personally reviewed and interpreted this ABG as follows: Imaging Data Chest x-ray: Radiologist's impression: [place] [id number] [place] [id number] XRay Report Signed Patient: Louie Rodriguez MR#: [id number] : 1950 Acct:[id number] Age/Sex: 68 / M Date of Service: 09/14/18 Loc: ED Accession Number: [id number] Procedure: XR chest 1V Ordering Provider: Chuy Perla D.O. PROCEDURE: XR CHEST 1V INDICATIONS: dyspnea, recent flu A TECHNIQUE: One view of the chest was acquired. COMPARISON: [facility], CR, XR CHEST 2V, 09/07/2018, 19:22. FINDINGS: Surgical changes and devices: None. Lungs and pleura: Interval patchy opacities are present overlying the right middle lobe as well as the lingula. Coarsened bibasilar opacities are present. Minimal increased vascularity. Mediastinum: Mediastinal contours appear normal. Heart size is normal. Bones and chest wall: No suspicious bony lesions. Overlying soft tissues appear unremarkable. IMPRESSION: Interval development of patchy bilateral and bibasilar coarsened opacities. This could represent infection/inflammation such as multifocal pneumonia. However, it is noted there is mild appearance of increased pulmonary vascularity. This could also represent focal edema. Recommend clinical correlation and interval followup to document resolution and exclude presence of underlying mass lesion. Dictated by: Dayana Andrade M.D. on 09/14/2018 at 10:44 Approved by: Dayana Andrade M.D. on 09/14/2018 at 10:45 ECG Data Attestation: I personally reviewed and interpreted this ECG as follows: Interpretation: Atrial Fib, HR in 80s, no ischemia. No ST change or T wave inversions MDM Narrative Medical decision making narrative: Patient with significant shortness of breath presents in respiratory distress. No hypoxia or tachycardia nor fever. Crackles on exam and x-ray would suggest pneumonia. Mildly elevated lactate. EKG notes AFib. D-dimer slightly elevated but when corrected for age is considered negative, therefore no CT angiogram pursued. Discharge Plan Departure Patient Disposition: Admitted As Inpatient Clinical Impression: Community acquired pneumonia, Influenza A Admit Date/Time: 09/14/18 12:05 Admit Provider: Eamon Feldman
[2018-09-14 11:15] LABS: Procalcitonin 0.05 ng/mL (<0.5)
[2018-09-14 11:16] LABS: BUN Creatinine Ratio 16.3 (6-22); Blood Urea Nitrogen 13 mg/dL (9-20); Calcium 8.5 mg/dL (8.4-10.2); Carbon Dioxide 26 mmol/L (22-32); Chloride 97 mmol/L (98-107); Creatine Kinase 97 U/L (55-170); Creatine Kinase MB 0.97 ng/mL (<2.37); Estimated Glomerular Filt Rate > 60.0 mL/min (>60); Glucose 100 mg/dL (80-110); HEMOLYSIS 16 (0-50); Magnesium 2.1 mg/dL (1.6-2.3); Potassium 3.8 mmol/L (3.4-5.1); Sodium 135 mmol/L (137-145); Troponin I 0.016 ng/mL (0.01-0.034)
[2018-09-14] MEDS: SODIUM CHLORIDE 0.9% 983 ML IV (12:12)
[2018-09-14] MEDS: KETOROLAC 15 MG/ML VIAL IV (12:14)
--- NOTE | 2018-09-14 13:11 | PM.HP.1 ---
History of Present Illness Date Patient Seen: 09/14/18 Time Patient Seen: 13:00 Chief complaint: TROUBLE BREATHING Narrative: Patient 60-year-old gentleman with recent history of influenza A presents with progressive shortness of breath a difficulty breathing fevers chills cough and a chest x-ray on admission showing no patchy pneumonia. Patient has elevated infection markers but a normal white blood count. Patient History Medical History ASHD (arteriosclerotic heart disease) (Acute) Anterior myocardial infarction (Acute ~2010) CAD (coronary artery disease) (Acute) HTN (hypertension) (Acute) Hyperlipidemia (Acute) Influenza A (Acute 09/07/18) Numbness (Acute) Paroxysmal SVT (supraventricular tachycardia) (Acute) Presence of bare metal stent in LAD coronary artery (Acute ~2010) Surgical History Hx of hernia repair (Acute) Hx of right knee surgery (Acute) Hx of tonsillectomy (Acute) Family & Social History Safety & Behavioral: Feels Safe in Current Yes Environment Been Physically Hurt or No Threatened By a Person Tobacco & Substance use: Smoking Status Never smoker alcohol intake never alcohol intake frequency holiday/special occasion Substance Use Type does not use Meds Home Medications Medication Instructions Recorded Confirmed Type aspirin 81 mg tablet,delayed 81 mg PO DAILY 09/07/18 09/14/18 History release atorvastatin 40 mg tablet 40 mg PO BEDTIME 09/07/18 09/14/18 History losartan 25 mg tablet 25 - 50 mg PO BEDTIME 09/07/18 09/14/18 History metoprolol succinate ER 50 mg 50 mg PO QAM 09/07/18 09/14/18 History tablet,extended release 24 hr acetaminophen [Tylenol Extra 1,000 mg PO Q6H PRN 09/11/18 09/14/18 History Strength] ibuprofen 400 mg PO TID 09/11/18 09/14/18 History Allergies Allergy/AdvReac Type Severity Reaction Status Date / Time No Known Drug Allergies Allergy Verified 09/14/18 10:45 Review of Systems Review of Systems PERRLA EOMs intact No sore throat or neck pain Cardiovascular shows no chest pain irregular heart rhythm lightheadedness palpitations. Does have shortness of breath consistent with above and increases with exertion Respiratory shows cough dyspnea but no wheezing Gastrointestinal shows no complaint of abdominal pain change in bowel habits diarrhea bleeding or vomiting shows no flank pain and urinary changes Musculoskeletal shows no significant complaints of joint pain back pain significant neck pain Neuro patient is alert oriented x3 without any acute complaints of confusion sensory or motor changes Exam Vital Signs (past 8 hours): - 09/14/18 10:10 09/14/18 10:30 09/14/18 10:51 Temperature 97.8 F Pulse Rate 90 83 802 H Respiratory Rate 40 H 33 H 31 H Blood Pressure 117/77 Blood Pressure [Left Arm] 96/69 97/70 Pulse Oximetry 94 97 98 09/14/18 11:00 09/14/18 11:10 09/14/18 11:20 Temperature Pulse Rate 88 75 80 Respiratory Rate 28 H 28 H 29 H Blood Pressure Blood Pressure [Left Arm] 92/63 98/57 L 109/82 Pulse Oximetry 99 95 95 09/14/18 11:50 09/14/18 11:58 09/14/18 12:04 Temperature Pulse Rate 75 73 76 Respiratory Rate 30 H 79 H Blood Pressure Blood Pressure [Left Arm] 88/58 L 109/89 101/53 L Pulse Oximetry 98 96 09/14/18 12:10 09/14/18 13:04 Temperature Pulse Rate 83 89 Respiratory Rate 26 H 24 Blood Pressure Blood Pressure [Left Arm] 109/61 126/87 Pulse Oximetry 97 Oxygen Delivery Method Nasal Cannula Oxygen Flow Rate 2 Narrative Exam Narrative: PE are RLA EOMs intact Head without sinus tenderness or evidence of trauma Nose patent there is purulent cough but no drainage throat has no nodes Cardiovascular shows regular rate but irregular rhythm no murmurs gallops rubs is significant edema Respiratory shows crackles in right lung base patient is breathing little tachypneic but able to complete sentences does have use of accessory muscles Gastrointestinal was abdomen obese soft nontender no hepatosplenomegaly or masses Extremities show no significant edema cyanosis or tenderness Back without deformity or no tenderness Neuro are patient alert orient x3 sensory motor intact Objective Labs Result Diagrams: 09/14/18 10:30 09/14/18 10:30 Labs: Laboratory Results - last 24 hr 09/14/18 09/14/18 09/14/18 10:24 10:30 10:30 WBC 4.5 RBC 5.22 Hgb 16.1 Hct 48.0 MCV 92.0 MCH 30.9 MCHC 33.6 RDW 13.5 Plt Count 245 Neut % (Auto) 69.4 Lymph % (Auto) 19.9 L [place] % (Auto) 10.1 Eos % (Auto) 0.1 L Baso % (Auto) 0.5 Neut # (Auto) 3100 PT 12.1 INR 1.0 APTT 24 L D-Dimer 497 H ABG pH 7.55 H ABG pCO2 21.8 L* ABG pO2 67 L ABG HCO3 19 L ABG Total CO2 20 L ABG O2 Saturation 96 ABG Base Excess -3.0 L FiO2 0.21 Sodium Potassium Chloride Carbon Dioxide BUN Creatinine Estimated GFR BUN/Creatinine Ratio Glucose Lactate Calcium Magnesium Total Creatine Kinase CK-MB (CK-2) CK-MB (CK-2) Rel Index Troponin I B-Natriuretic Peptide 122 H Procalcitonin 09/14/18 09/14/18 09/14/18 10:30 10:30 10:30 WBC RBC Hgb Hct MCV MCH MCHC RDW Plt Count Neut % (Auto) Lymph % (Auto) [place] % (Auto) Eos % (Auto) Baso % (Auto) Neut # (Auto) PT INR APTT D-Dimer ABG pH ABG pCO2 ABG pO2 ABG HCO3 ABG Total CO2 ABG O2 Saturation ABG Base Excess FiO2 Sodium 135 L Potassium 3.8 Chloride 97 L Carbon Dioxide 26 BUN 13 Creatinine 0.80 Estimated GFR > 60.0 BUN/Creatinine Ratio 16.3 Glucose 100 Lactate 2.2 H Calcium 8.5 Magnesium 2.1 Total Creatine Kinase 97 CK-MB (CK-2) 0.97 CK-MB (CK-2) Rel Index 1.0 L Troponin I 0.016 B-Natriuretic Peptide Procalcitonin 0.05 Assessment & Plan Plan: Assessment/Plan Narrative: Assessment 1. Pneumonia. This may be an atypical or viral presentation. Patient does not have a high white count but does have an elevated lactic acid. Had influenza DrAkilah diagnosis to us several days before this presentation. Will admit patient supply oxygen as needed IV fluids and treat with IV Levaquin. Will get 2nd chest x-ray tomorrow to look at potential progression and get serial labs for white blood count. Assessment 2. Influenza A. Patient seemed to improve a little bit of what had had the infection long enough that he did not get Tamiflu. This could be a secondary bacterial infection or progression of influenza to 2 pneumonia. I doubt that this is a trigger of congestive heart failure. Assessment 3 and ASCVD. Patient has history of acute myocardial infarction in the past also has history of a stent placed. Will have continuing his current medications for this. Current cardiac markers and enzymes are negative. BNP is very low level not very suggestive of this being a CT congestive heart failure infiltrate. Assessment 4. History of hypertension blood pressure currently in good control. Will continue with his current medication regimen. Assessment 5. History of PSVT. Again is on medication would help with his blood pressure coronary artery disease and heart rate control so will continue with beta-brenda utilization at this point as well as his atorvastatin.
--- NOTE | 2018-09-14 14:36 | PC.ADMIT ---
Admission Note Patient arrived to room 104 via stretcher at 1320. Walked self from stretcher to bed, very SOB, unable to speak more than 3 words at a time. Denies pain except when coughing, declines any pain meds. Oxygen sat s94-98% on 2L NC. Afib CVR on monitor - new for patient, Dr. Feldman aware. Dr. Feldman at bedside to evaluate and orders received. No void yet at this time - urinal at bedside. at bedside. Oriented to call light/tv/bed controls. Bed alarm on. Coarse crackles to left side, diffuse crackles to right. The patient,Louie Rodriguez,68 y/o, was given written information regarding hospital policies, unit procedures and contact persons. Patient's smoking status: Never smoker. Vital Signs - 8 hr 09/14/18 10:10 09/14/18 10:30 09/14/18 10:51 Temperature 97.8 F Pulse Rate 90 83 802 H Respiratory Rate 40 H 33 H 31 H Blood Pressure 117/77 Blood Pressure [Left Arm] 96/69 97/70 Pulse Oximetry 94 97 98 09/14/18 11:00 09/14/18 11:10 09/14/18 11:20 Temperature Pulse Rate 88 75 80 Respiratory Rate 28 H 28 H 29 H Blood Pressure Blood Pressure [Left Arm] 92/63 98/57 L 109/82 Pulse Oximetry 99 95 95 09/14/18 11:50 09/14/18 11:58 09/14/18 12:04 Temperature Pulse Rate 75 73 76 Respiratory Rate 30 H 79 H Blood Pressure Blood Pressure [Left Arm] 88/58 L 109/89 101/53 L Pulse Oximetry 98 96 09/14/18 12:10 09/14/18 13:04 09/14/18 13:29 Temperature 97.0 F L Pulse Rate 83 89 79 Respiratory Rate 26 H 24 24 Blood Pressure 128/83 Blood Pressure [Left Arm] 109/61 126/87 Pulse Oximetry 97 97
[2018-09-14 14:38] LABS: Reflexed Lactate in 2 Hours Y
[2018-09-14 16:42] LABS: Lactate 2HR (Lactic Acid Rflx) 1.2 mmol/L (0.7-2.1)
[2018-09-14] MEDS: SODIUM CHLORIDE 0.9% 1,000 ML 125 ML IV (17:25)
--- NOTE | 2018-09-14 18:21 | PC.NURSE ---
laura note pt denies SOB at rest, but RR high 20s, with some accessory muscle use. RT notified and currently giving breathing treatment. Lungs with scattered fine crackles, Right greater left lung. Urine sample sent.
[2018-09-14] MEDS: ALBUTEROL/IPRATROPIUM 3 ML AMPUL INH ×2 (18:23→21:15)
[2018-09-15] VITALS (18 sets, daily range): BP systolic 109–128; BP diastolic 57–77; PULSE 67–92; RESP 14–35; TEMP 36.2–37.4; O2SAT 91–97
[2018-09-15] MEDS: SODIUM CHLORIDE 0.9% 1,000 ML 125 ML IV ×3 (01:32→19:14)
[2018-09-15] MEDS: ALBUTEROL/IPRATROPIUM 3 ML AMPUL INH ×3 (01:55→18:51)
--- NOTE | 2018-09-15 05:12 | DI.RAD.S_ITS ---
PROCEDURE: XR CHEST 1V INDICATIONS: Pnuemonia TECHNIQUE: One view of the chest was acquired. COMPARISON: [facility], CR, XR CHEST 1V, 09/14/2018, 10:52. [facility], CR, XR CHEST 2V, 09/07/2018, 19:22. FINDINGS: Surgical changes and devices: None. Lungs and pleura: Multifocal infiltrates bilaterally are increased, consistent with worsening of pneumonia. No pleural effusions or pneumothorax. Mediastinum: Mediastinal contours appear normal. Heart size is normal. Bones and chest wall: No suspicious bony lesions. Overlying soft tissues appear unremarkable. IMPRESSION: Worsening multifocal pneumonia. Dictated by: Digna Yoon M.D. on 09/15/2018 at 8:03 Approved by: Digna Yoon M.D. on 09/15/2018 at 8:04
[2018-09-15 05:49] LABS: Add Manual Diff / Slide Review NO; Basophils Percent Auto 0.2 % (0-2); Eosinophils Percent Auto 0.2 % (2-4); Lymphocytes Percent Auto 16.9 % (25-40); Mean Corpuscular HGB Conc 33.3 % (30-36); Mean Corpuscular Hemoglobin 30.9 PG (26-34); Mean Corpuscular Volume 92.7 fL (80-100); Monocytes Percent Auto 11.2 % (3-14); Neutrophils Absolute Auto 2600 /uL (1500-7000); Neutrophils Percent Auto 71.5 % (50-75); Platelet Count 197 X10^3/uL (150-400); Red Blood Cell Count 4.21 X10^6/uL (4.5-5.9); Red Cell Distribution Width 13.4 % (11.6-14.8); White Blood Cell Count 3.6 X10^3/uL (4.5-11.0)
[2018-09-15 06:45] LABS: Alanine Aminotransferase 90 IU/L (21-72); Albumin 2.4 g/dL (3.5-5.0); Alkaline Phosphatase 48 U/L (38-126); Aspartate Aminotransferase 86 IU/L (17-59); BUN Creatinine Ratio 11.3 (6-22); Bilirubin Total 0.7 mg/dL (0.2-1.3); Blood Urea Nitrogen 9 mg/dL (9-20); Calcium 7.3 mg/dL (8.4-10.2); Carbon Dioxide 25 mmol/L (22-32); Chloride 103 mmol/L (98-107); Estimated Glomerular Filt Rate > 60.0 mL/min (>60); Globulin 2.5 g/dL (1.7-4.1); Glucose 100 mg/dL (80-110); HEMOLYSIS < 15 (0-50); Potassium 3.5 mmol/L (3.4-5.1); Sodium 134 mmol/L (137-145); Total Protein 4.9 g/dL (6.3-8.2)
--- NOTE | 2018-09-15 08:54 | CM.DANOTE ---
DCP: Case received, EMR reviewed and met with patient's , Chato. Introduced self and role. DCP template completed with information currently available. Patient is a 68 year old male who admitted yesterday afternoon to the care of the hospitalist team. PCP: Dr. Jara. Payer: confirmed: [facility]. Patient came to hospital via family vehicle with symptoms of shortness of breath. Patient had a recent history of influenza virus. Patient was noted to have an increase in his WBC. Patient carries diagnosis of Pneumonia. Met with patient's , Chato. Her phone number is: [phone], for caregiver was busy with patient in room. She stated that he had been recently ill with the flu. She stated that before he had the flu, he was driving. She stated that he is independent at home. Her and patient live in [place]. P: DCP to continue to follow. Goal is for home when stable. Will be determined on progress here in hospital. Khalida Gill RN/Operations Support Analyst
--- NOTE | 2018-09-15 11:10 | PM.PN.1 ---
Subjective Date Patient Seen: 09/15/18 Time Patient Seen: 10:35 Interval history: Patient feels a little better today. Less short of breath but still very weak. Has required stable amount of oxygen. 2-3 L and maintaining oxygenation okay. Eating with good appetite. His blood counts labs are stable at this point he accounting for some dilution with IVs. Chest x-ray shows slight worsening consistent with bilateral pneumonia. Will continue with current IV antibiotic and given patient feeling a little better. Serial labs for morning. Family medical history negative for coronary artery disease diabetes cancer Social history lives current low we with with good support. Usually very active Past history of coronary artery disease stent past [place] no symptoms of that currently and negative enzymes. Negative for congestive heart failure issues. Past surgical history patient had right knee surgery and been thinking about having another 1. Also had hernia repair distant. Exam Vital Signs (past 8 hours): - 09/15/18 04:00 09/15/18 04:46 09/15/18 07:40 Temperature 98.0 F 97.9 F 97.5 F L Pulse Rate 90 92 H 86 Respiratory Rate 23 26 H 20 Blood Pressure 118/61 118/61 109/73 Pulse Oximetry 92 92 93 09/15/18 08:22 Temperature Pulse Rate Respiratory Rate Blood Pressure Pulse Oximetry 96 Oxygen Delivery Method Nasal Cannula Oxygen Flow Rate 3 Narrative Exam Narrative: Alert and oriented x3 fatigue but is speaking clearly and comfortably and eating well. PERRLA EOMs intact Neck without mass Heart rhythm is regulated a little bit decent fib. Small amount of edema edema Lungs with crackles in bases but reasonable air movement and good sats. Abdomen abdomen is nontender no masses no hepatosplenomegaly Skin shows no rashes redness or breakdowns. Neuro is symmetrical intact to sensory motor speech is clear. Psych is stable patient and seems to be tolerating this and process well. Objective Labs Result Diagrams: 09/15/18 05:00 09/15/18 05:00 Labs: Laboratory Results - last 24 hr 09/14/18 09/14/18 09/14/18 10:30 10:30 13:48 WBC RBC Hgb Hct MCV MCH MCHC RDW Plt Count Neut % (Auto) Lymph % (Auto) [place] % (Auto) Eos % (Auto) Baso % (Auto) Neut # (Auto) Sodium 135 L Potassium 3.8 Chloride 97 L Carbon Dioxide 26 BUN 13 Creatinine 0.80 Estimated GFR > 60.0 BUN/Creatinine Ratio 16.3 Glucose 100 Lactate Calcium 8.5 Magnesium 2.1 Total Bilirubin AST ALT Alkaline Phosphatase Total Creatine Kinase 97 CK-MB (CK-2) 0.97 CK-MB (CK-2) Rel Index 1.0 L Troponin I 0.016 Total Protein Albumin Globulin Albumin/Globulin Ratio Procalcitonin 0.05 Nasal Screen MRSA (PCR) Negative for mrsa 09/14/18 09/15/18 09/15/18 15:31 05:00 05:00 WBC 3.6 L RBC 4.21 L Hgb 13.0 L Hct 39.0 L MCV 92.7 MCH 30.9 MCHC 33.3 RDW 13.4 Plt Count 197 Neut % (Auto) 71.5 Lymph % (Auto) 16.9 L [place] % (Auto) 11.2 Eos % (Auto) 0.2 L Baso % (Auto) 0.2 Neut # (Auto) 2600 Sodium 134 L Potassium 3.5 Chloride 103 Carbon Dioxide 25 BUN 9 Creatinine 0.80 Estimated GFR > 60.0 BUN/Creatinine Ratio 11.3 Glucose 100 Lactate 1.2 Calcium 7.3 L Magnesium Total Bilirubin 0.7 AST 86 H ALT 90 H Alkaline Phosphatase 48 Total Creatine Kinase CK-MB (CK-2) CK-MB (CK-2) Rel Index Troponin I Total Protein 4.9 L Albumin 2.4 L Globulin 2.5 Albumin/Globulin Ratio 1.0 Procalcitonin Nasal Screen MRSA (PCR) Assessment & Plan Plan: Assessment/Plan Narrative: Assessment 1. Pneumonia. This is bilateral and happens in the setting of having had influenza a week or so ago. That would suggest this could be a viral pneumonia that could also be a secondary bacterial pneumonia following influenza infection. Will continue with current coverage. Patient feels a little better and seems to be tolerating breathing in not symptomatic we progressing will watch closely. Assessment 2. Coronary artery disease enzymes negative no symptoms of chest pain or significant signs of congestive heart failure. BNP normal and no increase in peripheral edema. Follow-up two view chest x-ray shows infiltrates more consistent with pneumonia and no heart enlargement. Assessment 3. Atrial fibrillation patient has a paroxysmal history given his current status will use Lovenox and dissipate that getting his beta-brenda and for rate control may help although he has good rate control now see if he auto converted as his pneumonia improves will monitor magnesium as well. Assessment 4. Hypertension good control have his regular meds going on which will help with fluid management as well as rate control. History of elevated lipids will continue with his current medication. Has some low-grade liver enzyme elevation. Will recheck that her morning.
[2018-09-15] MEDS: levoFLOXacin 750 MG/150 ML PIGGYBACK 100 MG IV (12:00)
[2018-09-15] MEDS: METOPROLOL ER 50 MG TABLET PO (12:00)
[2018-09-15] MEDS: ENOXAPARIN 40 MG/0.4 ML SYRINGE SUBCUT (12:00)
[2018-09-15] MEDS: ALBUTEROL 2.5 MG/3 ML NEB (ADULT) INH (15:55)
[2018-09-15] MEDS: methylPREDNISolone 125 MG/2 ML VIAL 60 MG IV (19:24)
--- NOTE | 2018-09-15 20:31 | PC.NURSE ---
1500 assumed care of pt. pt awake and alert, fatigued. pt at bedside. Pt fluids infusing, tolerating. Pt uses call light. urinal. belongings and call light within reach. 1700- pt refused dinner stated he was too tired. Pt coughing up thick yellow secretions. 1899- pt work of breathing increased, rt suggested steroids. paged and discussed orders. orders rec'd. need sputum however may not result with anything as pt has already been on abx. stated pt doesn't need flu precautions as pt is out of window. also didn't want to start antivirals. discussed steroids with pt and new orders and pt compliant will continue to monitor pt for safety. 1924- pt aslep. converted to NSR. charted. 2129- pt asleep. will awaken to give evening meds. Pt HR 84. o2-94 with 2L NC
[2018-09-15] MEDS: ATORVASTATIN 20 MG TABLET 40 MG PO (21:12)
[2018-09-15] MEDS: ACETAMINOPHEN 325 MG TABLET 650 MG PO (21:12)
[2018-09-16] VITALS (12 sets, daily range): BP systolic 119–130; BP diastolic 73–84; PULSE 68–87; RESP 18–26; TEMP 36.1–37.3; O2SAT 89–94
[2018-09-16] MEDS: SODIUM CHLORIDE 0.9% 1,000 ML 125 ML IV (03:12)
[2018-09-16] MEDS: methylPREDNISolone 125 MG/2 ML VIAL 60 MG IV ×3 (04:17→20:11)
[2018-09-16 05:30] LABS: Add Manual Diff / Slide Review NO; Basophils Percent Auto 0.4 % (0-2); Hematocrit 38.8 % (41-53); Hemoglobin 12.9 g/dL (13.5-17.5); Lymphocytes Percent Auto 11.9 % (25-40); Mean Corpuscular HGB Conc 33.3 % (30-36); Mean Corpuscular Hemoglobin 30.7 PG (26-34); Mean Corpuscular Volume 92.3 fL (80-100); Monocytes Percent Auto 6.8 % (3-14); Neutrophils Absolute Auto 2400 /uL (1500-7000); Neutrophils Percent Auto 80.9 % (50-75); Platelet Count 236 X10^3/uL (150-400); Red Blood Cell Count 4.21 X10^6/uL (4.5-5.9)
[2018-09-16 05:34] LABS: Alanine Aminotransferase 80 IU/L (21-72); Albumin 2.9 g/dL (3.5-5.0); Albumin Globulin Ratio 1.1 (1.0-2.8); Alkaline Phosphatase 52 U/L (38-126); Aspartate Aminotransferase 57 IU/L (17-59); BUN Creatinine Ratio 11.4 (6-22); Bilirubin Total 0.8 mg/dL (0.2-1.3); Blood Urea Nitrogen 8 mg/dL (9-20); Carbon Dioxide 22 mmol/L (22-32); Chloride 104 mmol/L (98-107); Estimated Glomerular Filt Rate > 60.0 mL/min (>60); Globulin 2.7 g/dL (1.7-4.1); Glucose 172 mg/dL (80-110); HEMOLYSIS < 15 (0-50); Magnesium 1.9 mg/dL (1.6-2.3); Potassium 4.2 mmol/L (3.4-5.1); Sodium 135 mmol/L (137-145); Total Protein 5.6 g/dL (6.3-8.2)
[2018-09-16 05:56] LABS: B Type Natriuretic Peptide 233 (<100)
[2018-09-16] MEDS: ALBUTEROL 2.5 MG/3 ML NEB (ADULT) INH ×2 (06:01→20:11)
--- NOTE | 2018-09-16 08:42 | PM.PN.1 ---
Subjective Date Patient Seen: 09/16/18 Time Patient Seen: 08:00 Interval history: Patient admitted for pneumonia. Also was quite dehydrated. Treated with fluids secondary to low blood pressure and almost sepsis like presentation ER. Feeling better today we had initiated IV steroids along with antibiotics yesterday with history of asthma. Patient doing better today sitting up eating speaking more comfortably blood pressure good and he has converted out of his fibrillation. Has supportive spouse at home who has been here with him consistently. Family history negative for coronary artery disease diabetes and colon cancer. Exam Vital Signs (past 8 hours): - 09/16/18 03:24 09/16/18 04:30 09/16/18 06:02 Temperature 99.1 F Pulse Rate 68 68 Respiratory Rate 26 H 20 Blood Pressure 119/76 Pulse Oximetry 94 93 93 09/16/18 08:00 Temperature 97.4 F L Pulse Rate 75 Respiratory Rate 18 Blood Pressure 123/73 Pulse Oximetry 94 Oxygen Delivery Method Nasal Cannula Oxygen Flow Rate 2 Narrative Exam Narrative: Patient is sitting up eating breakfast answering questions comfortably and even has a smile a timer 2 this morning. PE ER [place] LL a EOMs intact Neck without mass Heart shows regular rate and rhythm without murmur Lungs with decreased crackles in bases bilaterally but good air movement Abdomen nontender no hepatosplenomegaly or mass Extremities symmetrical trace of edema. Neuro intact symmetrical patient diffusely weak but no focal deficit Objective Labs Result Diagrams: 09/16/18 05:03 09/16/18 05:03 Labs: Laboratory Results - last 24 hr 09/16/18 09/16/18 05:03 05:03 WBC 3.0 L RBC 4.21 L Hgb 12.9 L Hct 38.8 L MCV 92.3 MCH 30.7 MCHC 33.3 RDW 13.0 Plt Count 236 Neut % (Auto) 80.9 H Lymph % (Auto) 11.9 L [place] % (Auto) 6.8 Eos % (Auto) 0.0 L Baso % (Auto) 0.4 Neut # (Auto) 2400 Sodium 135 L Potassium 4.2 Chloride 104 Carbon Dioxide 22 BUN 8 L Creatinine 0.70 Estimated GFR > 60.0 BUN/Creatinine Ratio 11.4 Glucose 172 H Calcium 8.0 L Magnesium 1.9 Total Bilirubin 0.8 AST 57 ALT 80 H Alkaline Phosphatase 52 B-Natriuretic Peptide 233 H Total Protein 5.6 L Albumin 2.9 L Globulin 2.7 Albumin/Globulin Ratio 1.1 Assessment & Plan Plan: Assessment/Plan Narrative: Assessment 1. Pneumonia patient continues to slowly improve. Sats have been down into the 90 through 94 range but patient is not on oxygen currently as he eats his breakfast will continue with his IV antibiotics today and tomorrow and a relook at CBC and and compressive metabolic panel in a.m.. Assessment 2 atrial fibrillation this has resolved this morning patient has sinus rhythm when I evaluate his rhythm strip. Will continue to monitor Assessment number 3 dehydration I think patient has rehydrated up to this point and is taking fluids adequately orally will discontinue his maintenance IV keep his IV for meds. Recheck a BMP for morning. His us min 4. Coronary artery disease do not think this is active at this point at this point will continue the patient's routine regular medicines for that. Assessment 5. Hypertension patient blood pressure good this morning is maintaining a stable pressure is stable heart rate. Will continue with his usual medications for management of blood pressure and 5th monitor eyes and nose carefully.
[2018-09-16] MEDS: ENOXAPARIN 40 MG/0.4 ML SYRINGE SUBCUT (08:52)
[2018-09-16] MEDS: LOSARTAN 25 MG TABLET PO (08:53)
[2018-09-16] MEDS: METOPROLOL ER 50 MG TABLET PO (08:53)
[2018-09-16] MEDS: levoFLOXacin 750 MG/150 ML PIGGYBACK 100 MG IV (12:09)
--- NOTE | 2018-09-16 17:43 | PC.NURSE ---
Addendum entered by Olivia Mittal R.N. 09/16/18 22:01: Relatively uneventful evening. Denie any discomfort. notified about tele, order to D/C recieved. Pt requesting maalox for indegestion. Call light w/in reach, bed alarm on for pt safety. Continue w/plan of care. Original Note: Pt sitting in chair, denies any discomfort. Lungs clear/diminished at bases. SpO2 94% 2L. Two HL in right arm intact/patent. Tele shows NSR, per ICU staff. Call light w/in reach.
[2018-09-16] MEDS: ATORVASTATIN 20 MG TABLET 40 MG PO (20:12)
[2018-09-16] MEDS: MAG HYDROX/ALUM/SIMETH 30 ML UDC PO (21:56)
[2018-09-17] VITALS (15 sets, daily range): BP systolic 116–131; BP diastolic 76–88; PULSE 69–100; RESP 14–18; TEMP 36.4–36.6; O2SAT 86–98
[2018-09-17] MEDS: ALBUTEROL 2.5 MG/3 ML NEB (ADULT) INH ×2 (04:12→18:08)
[2018-09-17] MEDS: methylPREDNISolone 125 MG/2 ML VIAL 60 MG IV ×2 (04:28→11:52)
--- NOTE | 2018-09-17 05:29 | PC.NURSE ---
Pt is A and O x 4, LS diminished, no wheezing or coughing this shift. HR irregular, S1, S2. + BTs. VSS.
[2018-09-17 06:20] LABS: Add Manual Diff / Slide Review NO; Basophils Percent Auto 0.2 % (0-2); Hematocrit 37.6 % (41-53); Hemoglobin 12.9 g/dL (13.5-17.5); Lymphocytes Percent Auto 6.4 % (25-40); Mean Corpuscular HGB Conc 34.2 % (30-36); Mean Corpuscular Hemoglobin 31.4 PG (26-34); Mean Corpuscular Volume 91.6 fL (80-100); Monocytes Percent Auto 4.7 % (3-14); Neutrophils Absolute Auto 5600 /uL (1500-7000); Neutrophils Percent Auto 88.7 % (50-75); Platelet Count 297 X10^3/uL (150-400); Red Cell Distribution Width 13.2 % (11.6-14.8); White Blood Cell Count 6.3 X10^3/uL (4.5-11.0)
[2018-09-17 06:36] LABS: B Type Natriuretic Peptide 192 (<100)
[2018-09-17 06:38] LABS: Alanine Aminotransferase 81 IU/L (21-72); Albumin 2.9 g/dL (3.5-5.0); Albumin Globulin Ratio 1.1 (1.0-2.8); Alkaline Phosphatase 57 U/L (38-126); Aspartate Aminotransferase 47 IU/L (17-59); BUN Creatinine Ratio 18.6 (6-22); Bilirubin Total 0.7 mg/dL (0.2-1.3); Blood Urea Nitrogen 13 mg/dL (9-20); Calcium 8.4 mg/dL (8.4-10.2); Carbon Dioxide 22 mmol/L (22-32); Chloride 104 mmol/L (98-107); Estimated Glomerular Filt Rate > 60.0 mL/min (>60); Globulin 2.7 g/dL (1.7-4.1); Glucose 171 mg/dL (80-110); HEMOLYSIS < 15 (0-50); Potassium 3.5 mmol/L (3.4-5.1); Sodium 140 mmol/L (137-145); Total Protein 5.6 g/dL (6.3-8.2)
[2018-09-17] MEDS: METOPROLOL ER 50 MG TABLET PO (10:07)
[2018-09-17] MEDS: LOSARTAN 25 MG TABLET PO (10:08)
[2018-09-17] MEDS: ENOXAPARIN 40 MG/0.4 ML SYRINGE SUBCUT (10:08)
[2018-09-17] MEDS: levoFLOXacin 750 MG/150 ML PIGGYBACK 100 MG IV (11:52)
--- NOTE | 2018-09-17 13:08 | PM.PN.1 ---
Subjective Date Patient Seen: 09/17/18 Time Patient Seen: 12:20 Interval history: Patient is a 68-year-old male admitted 3 days ago with severe pneumonia. Was quite hypoxic hypotensive tachycardic. His hypoxia was due to pneumonia and he was in a degree of hypoxic respiratory failure due to pneumonia. Initial heart rate and abilities speak in complete sentences and oxygen saturations were all significantly depleted be significantly better now still on 3 L of O2 and desaturates without or with activity. No chest pain feels less fatigued is now out of the ICU. Has oxygen in place with IV antibiotics and steroids and is doing some ambulation in the hallway with minimal assistance. Will anticipate switching meds to oral meds today watch for 24 hr and make sure there is no aggravation see how things look tomorrow. Also need to consider the possibility of home O2 if he continues to need supplementation. Social history patient lives with there are in the community she is very supportive and well informed about his state of health at this point and had good access to medical support Family history reviewed and shows past history not positive for diabetes lung cancer colon cancer. There may be a bit of a family history of coronary artery disease mostly associated with smoking Exam Vital Signs (past 8 hours): - 09/17/18 07:00 09/17/18 07:25 09/17/18 11:35 Temperature 97.8 F 97.5 F L Pulse Rate 79 83 Respiratory Rate 16 18 Blood Pressure 121/76 119/82 Pulse Oximetry 98 94 93 Oxygen Delivery Method Nasal Cannula Oxygen Flow Rate 2 Narrative Exam Narrative: Patient is sitting in bed comfortably answering questions clearly clear speech and clear cognition. PERRLA EOMs intact Lungs with decreased breath sounds or rales in bases but be improved over the course of admission CV is shows regular rate and rhythm no murmur S3. No significant edema at this point. Abdomen soft nontender no hepatosplenomegaly or mass. Neuro intact symmetrical to sensory and motor and cognition. Speech is clear. Back without any significant lesions soreness or rash Objective Labs Result Diagrams: 09/17/18 05:35 09/17/18 05:35 Labs: Laboratory Results - last 24 hr 09/17/18 09/17/18 05:35 05:35 WBC 6.3 D RBC 4.10 L Hgb 12.9 L Hct 37.6 L MCV 91.6 MCH 31.4 MCHC 34.2 RDW 13.2 Plt Count 297 Neut % (Auto) 88.7 H Lymph % (Auto) 6.4 L [place] % (Auto) 4.7 Eos % (Auto) 0.0 L Baso % (Auto) 0.2 Neut # (Auto) 5600 Sodium 140 Potassium 3.5 Chloride 104 Carbon Dioxide 22 BUN 13 Creatinine 0.70 Estimated GFR > 60.0 BUN/Creatinine Ratio 18.6 Glucose 171 H Calcium 8.4 Total Bilirubin 0.7 AST 47 ALT 81 H Alkaline Phosphatase 57 B-Natriuretic Peptide 192 H Total Protein 5.6 L Albumin 2.9 L Globulin 2.7 Albumin/Globulin Ratio 1.1 Assessment & Plan Plan: Assessment/Plan Narrative: Assessment 1. Pneumonia. Patient admitted with [place] shortness of breath and diagnosis of pneumonia. Quite tachypneic and hypoxic hypotensive at that time with features consistent of near sepsis. Acute hypoxic respiratory failure seemed eminent. IV antibiotics and IV steroids have restored things fairly significantly but is still requiring supplemental O2. Will switch to oral medicines today see if he can tolerate that if he still needs oxygen supplementation will need to arrange for home O2. Assessment 2. Hypoxia this was secondary to his pneumonia. Improving but still requiring some supplementation. Assessment 3. Hypertension blood pressure in good control will continue with current medications. Assessment 4. Atherosclerotic cardiovascular disease as is stable during this admission so far stent in place following an IA in the past I will continue with current regimen of medications.
[2018-09-17] MEDS: predniSONE 20 MG TABLET 40 MG PO (14:27)
[2018-09-17] MEDS: ATORVASTATIN 20 MG TABLET 40 MG PO (21:12)
--- NOTE | 2018-09-17 23:28 | PC.NURSE ---
1500- assumed care of pt. pt sitting u in bed. family at bedside. pt looks much better today and states he feels better. Pt compliant with nursing assessment. Pt 96% on 2L, weaned to 1L and pt seems to be tolerating. will continue to monitor. taught pt how to use IS and encouraged use of this as pt still very crackly. 1700- pt ate dinner. then went for a walk. pt needed 2-3L of oxygen while ambulating. but would recover. Pt didn't feel SOB but walked with INTELLIGENCE SPECIALIST and did ok. pt then back in bed and needing 2L. Respiratory in to eval and give pt breathing treatment around 1800 and pt called around 1830 stating that he felt like the oxygen was coming through the NC too much and flowing too hard/fast. Pt on 2.5 l. turned down to 2L and encouraged pt to use IS. Pt smiles and states he will, I am not convinced pt uses it as much as he states. Pt at bedside. Pt cooperative. Pt still very crackly to lower lung kuo. Pt uses call light and calls when needing assistance. left and pt bed alarm turned on. discussed meds and plan o care. will continue to monitor pt for safety.
[2018-09-18] VITALS (12 sets, daily range): BP systolic 98–141; BP diastolic 57–97; PULSE 62–100; RESP 12–19; TEMP 36.6–37.2; O2SAT 89–98
--- NOTE | 2018-09-18 | DI.CT.S_ITS ---
PROCEDURE: CT ANGIO CHEST PE PROTOCOL INDICATIONS: acute respiratory failure TECHNIQUE: After the administration of intravenous contrast, 2 mm thick sections acquired from the pulmonary apices to the posterior costophrenic angles. 3-dimensional maximum intensity projection (MIP) coronal and sagittal reformats were then acquired through the thorax. For radiation dose reduction, the following was used: automated exposure control, adjustment of mA and/or kV according to patient size. COMPARISON: None. FINDINGS: Image quality: Excellent. Pulmonary arteries: Pulmonary arteries are normal in size, and demonstrate no intraluminal filling defects to suggest central pulmonary embolism. Lungs and pleura: Extensive patchy groundglass opacifications are seen scattered throughout bilateral lung kuo. Small bilateral pleural effusion is seen. No pneumothorax. Central and peripheral airways are patent. Mediastinum: Heart size is enlarged, without pericardial effusion. Mildly prominent subcarinal lymph node is seen measures 1 cm in short axis diameter. Prominent bilateral hilar lymph nodes are seen measures up to 1.3 cm in short axis diameter in left hilar region. Thoracic aorta is normal in caliber and enhancement. Atherosclerotic calcifications are seen scattered in coronary arteries and thoracic aorta. Esophagus is normal in caliber, with a small hiatal hernia. Bones and chest wall: No suspicious bony lesions. Ribs and thoracic spine appear intact throughout. Thyroid gland is within normal limits.. No axillary or supraclavicular adenopathy. Abdomen: Visualized upper abdominal solid organs appear normal in the early arterial phase of enhancement. IMPRESSION: 1. No evidence of central pulmonary embolism. No thoracic aortic aneurysm or gross dissection. 2. Extensive airspace opacities scattered in bilateral lung kuo suggestive of excessive bilateral patchy infiltrates/pneumonitis. Small bilateral pleural effusion. No pneumothorax. Airway is patent. 3. Mildly enlarged mediastinal and bilateral hilar lymph nodes suggestive of reactive inflammatory lymphadenopathy. 4. Cardiomegaly, no pericardial effusion. Small hiatal hernia. Dictated by: Boy Walsh M.D. on 09/18/2018 at 8:59 Approved by: Boy Walsh M.D. on 09/18/2018 at 9:10
--- NOTE | 2018-09-18 05:13 | PC.NURSE ---
Pt. awake denies any dyspnea, no SOB & no C/O pain or discomfort. Refused to wear SCD's, states that hurts my knees. Slept most of the night 2 liters 93-95%, will cont. POC & monitor.
[2018-09-18 05:54] LABS: Add Manual Diff / Slide Review NO; Basophils Percent Auto 0.1 % (0-2); Hematocrit 37.3 % (41-53); Hemoglobin 12.8 g/dL (13.5-17.5); Lymphocytes Percent Auto 5.9 % (25-40); Mean Corpuscular HGB Conc 34.2 % (30-36); Mean Corpuscular Hemoglobin 31.2 PG (26-34); Mean Corpuscular Volume 91.1 fL (80-100); Neutrophils Absolute Auto 8000 /uL (1500-7000); Platelet Count 326 X10^3/uL (150-400); Red Cell Distribution Width 13.3 % (11.6-14.8); White Blood Cell Count 9.4 X10^3/uL (4.5-11.0)
[2018-09-18 06:03] LABS: Alanine Aminotransferase 80 IU/L (21-72); Albumin 2.8 g/dL (3.5-5.0); Albumin Globulin Ratio 1.1 (1.0-2.8); Alkaline Phosphatase 45 U/L (38-126); Aspartate Aminotransferase 39 IU/L (17-59); BUN Creatinine Ratio 22.5 (6-22); Bilirubin Total 0.7 mg/dL (0.2-1.3); Blood Urea Nitrogen 18 mg/dL (9-20); Calcium 8.6 mg/dL (8.4-10.2); Carbon Dioxide 28 mmol/L (22-32); Chloride 101 mmol/L (98-107); Estimated Glomerular Filt Rate > 60.0 mL/min (>60); Globulin 2.5 g/dL (1.7-4.1); Glucose 115 mg/dL (80-110); HEMOLYSIS < 15 (0-50); Potassium 4.4 mmol/L (3.4-5.1); Sodium 140 mmol/L (137-145); Total Protein 5.3 g/dL (6.3-8.2)
[2018-09-18] MEDS: ALBUTEROL 2.5 MG/3 ML NEB (ADULT) INH ×2 (06:09→16:37)
[2018-09-18 06:10] LABS: B Type Natriuretic Peptide 209 (<100)
[2018-09-18] MEDS: ALBUTEROL/IPRATROPIUM 3 ML AMPUL INH (07:26)
--- NOTE | 2018-09-18 08:31 | PM.PN.1 ---
Subjective Date Patient Seen: 09/18/18 Time Patient Seen: 08:31 Interval history: Patient seen in follow-up of respiratory failure and pneumonia. No chest pain. If no significant cough. Still feeling weak. Still feeling short of breath. Required the increase in oxygen this morning. No other changes. No new changes of symptoms. Exam Vital Signs (past 8 hours): - 09/18/18 00:52 09/18/18 04:32 09/18/18 06:09 Temperature 98.7 F Pulse Rate 73 69 Respiratory Rate 16 Blood Pressure 118/73 Pulse Oximetry 95 98 94 09/18/18 07:05 09/18/18 07:26 09/18/18 08:00 Temperature 98.9 F Pulse Rate 62 84 Respiratory Rate 12 18 Blood Pressure 111/67 Pulse Oximetry 93 90 L 94 Oxygen Delivery Method Nasal Cannula Oxygen Flow Rate 7 Narrative Exam Narrative: Left elderly male in no acute distress. With O2 on 6 L Mucous membranes moist. Neck supple without adenopathy. Lungs show maybe some decreased breath sounds at bases and fine crackles but otherwise completely clear. No rib retractions or other change. Heart regular rate and rhythm without murmurs clicks rubs or gallops. Abdomen is soft positive bowel sounds nontender. Extremities without cyanosis clubbing edema. Nontender. Objective Labs Result Diagrams: 09/18/18 05:25 09/18/18 05:25 Labs: Laboratory Results - last 24 hr 09/18/18 09/18/18 05:25 05:25 WBC 9.4 RBC 4.10 L Hgb 12.8 L Hct 37.3 L MCV 91.1 MCH 31.2 MCHC 34.2 RDW 13.3 Plt Count 326 Neut % (Auto) 85.0 H Lymph % (Auto) 5.9 L [place] % (Auto) 9.0 Eos % (Auto) 0.0 L Baso % (Auto) 0.1 Neut # (Auto) 8000 H Sodium 140 Potassium 4.4 Chloride 101 Carbon Dioxide 28 BUN 18 Creatinine 0.80 Estimated GFR > 60.0 BUN/Creatinine Ratio 22.5 H Glucose 115 H Calcium 8.6 Total Bilirubin 0.7 AST 39 ALT 80 H Alkaline Phosphatase 45 B-Natriuretic Peptide 209 H Total Protein 5.3 L Albumin 2.8 L Globulin 2.5 Albumin/Globulin Ratio 1.1 Assessment & Plan Plan: Assessment/Plan Narrative: Respiratory failure acute. Probably secondary to pneumonia. Had pretty extensive disease but etiology and reason for worsening not clear. Does not appear to have increased white count or worsening with change to p.o.. Has been on Lovenox. Will obtain CT scan and re-evaluate. Continue O2 as needed. May need to go home on O2 will see how things go. Hoping he will least reduce some of his knee before that. Pneumonia bilateral on p.o. medicines cultures negative to date. Will follow. I do not think we need IV antibiotics given current status but will follow History of sepsis. Resolved. Hypertension. Current blood pressure doing well will follow. CAD. Overall appears to be stable. DVT prophylaxis. On treatment. Will follow. Disposition. Certainly with increased O2 need will need to continue O2. May need to go home without O2. Hoping will see in some improvement before that. He understands. Questions answered will follow up later with CT scan
[2018-09-18] MEDS: METOPROLOL ER 50 MG TABLET PO (09:46)
[2018-09-18] MEDS: ENOXAPARIN 40 MG/0.4 ML SYRINGE SUBCUT (09:46)
[2018-09-18] MEDS: predniSONE 20 MG TABLET 40 MG PO (09:46)
[2018-09-18] MEDS: LOSARTAN 25 MG TABLET PO (09:47)
[2018-09-18] MEDS: SODIUM CHLORIDE 0.9% FLUSH 10 ML IV ×2 (09:47→20:49)
[2018-09-18] MEDS: levoFLOXacin 250 MG TABLET 750 MG PO (09:50)
[2018-09-18] MEDS: ATORVASTATIN 20 MG TABLET 40 MG PO (20:49)
[2018-09-19] VITALS (14 sets, daily range): BP systolic 96–124; BP diastolic 61–80; PULSE 69–98; RESP 17–24; TEMP 36.7–37.1; O2SAT 91–100
--- NOTE | 2018-09-19 | DI.ECHO.S_ITS ---
[place] +---------+ [facility] +---------+ : : [address] : : : : [id number] : : : : Phone: [phone]+ Echocardiogram Report + + :Name: JA ROSARIO Study Date: 09/20/2018 Height: 72 in : :[facility] Weight: 217 lb: : Gender: Male BSA: 2.2 m2 : :: 1950 Age: 68 yrs BP: 92/60 mmHg: :Reason For Study: Hypoxia : :Ordering Physician: Dr. Cotton : :Marek Performed By: Senait Prescott : :Referring: Roderick Ravi : + + Interpretation Summary The patient was in atrial fibrillation with heart rates between 82-100 bpm during the exam. Normal left ventricle size with ejection fraction 55-60%. Moderately dilated left atrium. Mild aortic valve sclerosis. Mild aortic regurgitation. Mildly enlarged ascending aorta and aortic arch. There is an abdominal aortic aneurysm measuring 4.4 x 4.5 cm with thrombus noted. Procedure: A two-dimensional transthoracic echocardiogram with color flow and Doppler was performed. The study quality was technically adequate. Comparison is made with the echocardiogram of 06-24-11. The patient was in atrial fibrillation with heart rates between 82-100 bpm during the exam. Left Ventricle: The left ventricle is normal in size. There is normal left ventricular wall thickness. The ejection fraction is estimated to be 55-60%. There are no obvious focal wall motion abnormalities noted but poor endocardial definition reduces the sensitivity for the detection of such. Diastolic function could not be accurately assessed due to atrial fibrillation. Right Ventricle: The right ventricle grossly appears normal in size with probable normal systolic function. Atria: The left atrium is moderately dilated. Right atrial size is normal. The interatrial septum is intact with no evidence for an atrial septal defect. Mitral Valve: The mitral valve is grossly normal. There is trace mitral regurgitation. Aortic Valve: The aortic valve is trileaflet. The aortic valve opens well. There is mild aortic valve sclerosis. There is mild aortic regurgitation. Tricuspid Valve: The tricuspid valve is normal in structure and function. There is trace tricuspid regurgitation. The right ventricular systolic pressure is estimated to be at least 24 mmHg based on an estimated right atrial pressure of 3 mm Hg. Pulmonic Valve: The pulmonic valve is normal in structure and function. There is trace pulmonic regurgitation. Great Vessels: The aortic root is mildly dilated. The ascending aorta is mildly enlarged. The aortic arch is mildly enlarged. There is an abdominal aortic aneurysm measuring 4.4 x 4.5 cm with thrombus noted. The IVC is of normal diameter and collapses greater than 50% with a sniff. This suggests a low right atrial pressure of 3 mm Hg. Pericardium/ Pleura There is no pericardial effusion. There is no pleural effusion. MMode/2D Measurements & Calculations LVIDd: 5.4 cm Ao root diam: 4.3 cm LVIDs: 3.6 cm Aortic Jxn: 3.5 cm FS: 32.7 % asc Aorta Diam: 4.0 cm EPSS: 0.93 cm Ao Arch Diam (Prox Trans): 3.9 cm IVSd: 1.1 cm LVPWd: 0.76 cm LV zhao. diameter/BSA (cm/m^2): 2.4 LV sys. diameter/BSA (cm/m^2): 1.6 LA dimension: 4.8 cm RA long axis: 5.2 cm LA A2 area: 26.6 cm2 RA area: 18.5 cm2 LA A4 area: 31.2 cm2 RA vol: 56.3 ml LA length (vol): 6.9 cm RA : 25.5 ml/m2 LA vol: 101.5 ml IVC diam: 1.2 cm LA vol index: 46.0 ml/m2 RVDd major: 5.6 cm RVD1 (basal): 3.4 cm RVD2 (mid): 2.7 cm Doppler Measurements & Calculations Ao V2 max: 128.4 cm/sec AI P1/2t: 840.7 msec Ao V2 mean: 79.5 cm/sec AI dec slope: 117.9 cm/sec2 Ao max P.6 mmHg Ao mean P.1 mmHg Ao V2 VTI: 22.1 cm Med Peak E' Darell: 7.4 cm/sec TR max darell: 227.2 cm/sec Lat Peak E' Darell: 15.4 cm/sec TR max P.6 mmHg MV P1/2t: 61.1 msec PA V2 max: 89.1 cm/sec PA V2 mean: 57.5 cm/sec PA mean P.5 mmHg PA Accel Time: 0.15 sec MV V2 mean: 52.0 cm/sec MV P1/2t max darell: 92.1 cm/sec MV mean P.5 mmHg MVA(P1/2t): 3.6 cm2 MV V2 VTI: 14.1 cm Electronically signed by: Ricardo Burns on Reading Physician:09/20/2018 12:40 PM
--- NOTE | 2018-09-19 04:26 | PC.NURSE ---
2 liters / 84-87%, RT. notified & states he had a period of desaturation we just have to increase his oxygen. Increased to 3 liters & sat. 88-89%. He is now @ 5 liters & sat. 92%. Denies any dyspnea & no SOB noted. No C/O pain when coughing & no C/O CP. Will cont. POC & monitor.
--- NOTE | 2018-09-19 05:04 | PC.NURSE ---
Turned 02 down to 2 liters, with 5 liters SPO2 97-98%. Rechecked pt. SPO2 96% in 2 liters of 02, pt. sleeping now. Will cont. POC & monitor.
[2018-09-19 05:56] LABS: BUN Creatinine Ratio 16.7 (6-22); Blood Urea Nitrogen 15 mg/dL (9-20); Calcium 8.6 mg/dL (8.4-10.2); Carbon Dioxide 32 mmol/L (22-32); Chloride 100 mmol/L (98-107); Estimated Glomerular Filt Rate > 60.0 mL/min (>60); Glucose 81 mg/dL (80-110); HEMOLYSIS < 15 (0-50); Sodium 138 mmol/L (137-145)
[2018-09-19] MEDS: ALBUTEROL 2.5 MG/3 ML NEB (ADULT) INH ×2 (05:59→18:02)
[2018-09-19] MEDS: ACETAMINOPHEN 325 MG TABLET 650 MG PO ×2 (07:21→20:28)
--- NOTE | 2018-09-19 07:23 | PC.NURSE ---
C/O back pain requested Tylenol 650 mg. Po admin. 1.5 liters / 88-89% increased 02 to 3 liters sat. 92-93%. Will monitor.
[2018-09-19 07:52] LABS: Red Blood Cell Count 4.17 X10^6/uL (4.5-5.9); White Blood Cell Count 7.4 X10^3/uL (4.5-11.0)
[2018-09-19 07:54] LABS: Hematocrit 38.6 % (41-53); Mean Corpuscular HGB Conc 33.6 % (30-36); Mean Corpuscular Hemoglobin 31.1 PG (26-34); Mean Corpuscular Volume 92.6 fL (80-100)
[2018-09-19 07:55] LABS: Platelet Count 304 X10^3/uL (150-400); Red Cell Distribution Width 13.1 % (11.6-14.8)
[2018-09-19 07:56] LABS: Add Manual Diff / Slide Review YES
[2018-09-19] MEDS: ALBUTEROL/IPRATROPIUM 3 ML AMPUL INH ×3 (08:21→20:13)
[2018-09-19 09:17] LABS: Neutrophils Absolute Manual 6142 /uL (3000-5900); RBC Morphology Normal Morphology; Total Cells Counted 100
[2018-09-19] MEDS: levoFLOXacin 250 MG TABLET 750 MG PO (09:31)
[2018-09-19] MEDS: predniSONE 20 MG TABLET 40 MG PO (09:32)
[2018-09-19] MEDS: METOPROLOL ER 50 MG TABLET PO (09:33)
[2018-09-19] MEDS: ENOXAPARIN 40 MG/0.4 ML SYRINGE SUBCUT (09:33)
--- NOTE | 2018-09-19 11:03 | PC.NURSE ---
Addendum entered by Argentina Sullivan R.N. 09/19/18 14:45: RESP/PAIN - was up to chair earlier, continues sob at rest w/3l 98%, declines tylenol at this time. Original Note: AM NOTE - awake, given tylenol earlier for back pain and headache, appears tired, sob at rest and w/any activity, hr 96 w/murmur, 3L 22105%, bs dim throughout, RT in tmt this am, added ice pack to lower back.
[2018-09-19] MEDS: SODIUM CHLORIDE 0.9% FLUSH 10 ML IV ×2 (11:26→20:32)
--- NOTE | 2018-09-19 11:59 | CM.DPC ---
DCP Cont: Checked in with patient. , Chato in room. Patient is continuing on oxgen, goal is to see if he can go home without oxygen, but patient has been de-sating without oxygen. Patient should be working with respiratory therapist as well. Primary provider has not yet seen patient today. P: DCP to continue to follow closely. Will check provider's notes from today to note plan. Will also look at respiratory therapy notes as well. Khalida Gill RN/Measurement Analyst
--- NOTE | 2018-09-19 12:52 | P.PN_ITS ---
Subjective Date Patient Seen: 09/19/18 Time Patient Seen: 12:44 Interval history: Not a lot better. Seemed like he was a little better yesterday, symptoms seemed to wax and wane quite a bit. Sometimes when he awakens his O2 saturation is better, but then later in the day gets worse again has been here now for several days, with a history of influenza which was treated, has been on IV antibiotics, also cortisone. His was present today notes that he seemed better when he was on IV steroids. No history of COPD. He says he is able to get up and move around a bit on his own but gets very short of breath. Using oxygen all the time at this point. Exam Vital Signs (past 8 hours): - 09/19/18 06:01 09/19/18 08:10 09/19/18 08:26 Temperature 98.7 F Pulse Rate 69 86 Respiratory Rate 18 20 Blood Pressure 107/73 Pulse Oximetry 95 92 93 09/19/18 09:20 Temperature Pulse Rate Respiratory Rate Blood Pressure Pulse Oximetry 93 Oxygen Delivery Method Nasal Cannula Oxygen Flow Rate 3.5 Narrative Exam Narrative: Ill appearing lying quietly appropriately interactive no acute distress. HEENT unremarkable chest shows some crackles some areas of decreased breath sounds no wheezes. Heart regular occasional ectopy. Abdomen soft nontender nondistended normoactive bowel tones extremities benign without significant edema neurologically nonfocal. Objective Labs Result Diagrams: 09/19/18 05:23 09/19/18 05:23 Labs: Laboratory Results - last 24 hr 09/19/18 09/19/18 05:23 05:23 WBC 7.4 RBC 4.17 L Hgb 13.0 L Hct 38.6 L MCV 92.6 MCH 31.1 MCHC 33.6 RDW 13.1 Plt Count 304 Neut % (Auto) Not Reportable Lymph % (Auto) Not Reportable [place] % (Auto) Not Reportable Eos % (Auto) Not Reportable Baso % (Auto) Not Reportable Total Counted 100 Seg Neutrophils % 82.0 H Band Neutrophils % 1.0 L Lymphocytes % (Manual) 9.0 L Atypical Lymphs % 1.0 H Monocytes % (Manual) 6.0 Eosinophils % (Manual) 1.0 L Neutrophils # (Manual) 6142 H RBC Morphology Normal morphology Sodium 138 Potassium 4.0 Chloride 100 Carbon Dioxide 32 BUN 15 Creatinine 0.90 Estimated GFR > 60.0 BUN/Creatinine Ratio 16.7 Glucose 81 Calcium 8.6 Assessment & Plan (1) Hypoxia: Problem details: Some better, but persistent. Imaging yesterday does suggest persistent evidence of pneumonia likely source, but no evidence of PE or other underlying causes. Does have a history of heart disease I wonder if some of this is due to heart function abnormality and will consider an echo to evaluate. Current visit: Yes Status: Acute (2) Community acquired pneumonia: Problem details: Persistent, thought to be perhaps a manifestation of influenza but did complete a course of treatment for that still could be a factor here, certainly acting somewhat viral. However has been on antibiotics which should be adequate but clearly not providing very complete coverage. So will switch that to an alternate combo hoping that will work a little better. Qualifiers: Laterality: right Lung location: unspecified part of lung Qualified Code(s): J18.9 - Pneumonia, unspecified organism Current visit: Yes Status: Acute (3) Influenza A: Problem details: Presumed resolved at this time, but as above some chance it is still contributing. Continue supportive therapy. Current visit: No Status: Acute (4) Fatigue: Problem details: A station of generalized illness I believe nothing else to suggest a cause. Current visit: Yes Status: Acute (5) Atrial fibrillation: Problem details: Currently in sinus was an issue early on. Current visit: Yes Status: Acute (6) Acute respiratory failure: Problem details: As discussed above. Current visit: Yes Status: Acute Plan: Assessment/Plan Narrative: Adjustments to medications as above, will evaluate with echocardiogram, will have PT evaluate and treat. Otherwise no changes.
[2018-09-19] MEDS: CEFTRIAXONE 1 GM/50 ML FROZ.PIGGY IV (14:30)
[2018-09-19] MEDS: AZITHROMYCIN 250 MG TABLET 500 MG PO (14:34)
[2018-09-19] MEDS: LOSARTAN 25 MG TABLET PO (16:46)
[2018-09-19] MEDS: ATORVASTATIN 20 MG TABLET 40 MG PO (20:28)
[2018-09-20] VITALS (20 sets, daily range): BP systolic 86–118; BP diastolic 54–83; PULSE 77–124; RESP 15–20; TEMP 36.4–37.1; O2SAT 92–100
--- NOTE | 2018-09-20 | DI.RAD.S_ITS ---
PROCEDURE: XR CHEST 1V INDICATIONS: follow pneumonia TECHNIQUE: One view of the chest was acquired. COMPARISON: , CR, XR CHEST 1V, 09/15/2018, 5:44. , CR, XR CHEST 1V, 09/14/2018, 10:52. FINDINGS: Surgical changes and devices: None. Lungs and pleura: No pleural effusions or pneumothorax. Lungs are abnormal with a patchy bilateral pneumonia that are but appears to have mildly worsened with reference to the most recent comparison plain films from 09/14/18 and 09/15/18.. Mediastinum: Mediastinal contours appear normal. Heart size is normal. Bones and chest wall: No suspicious bony lesions. Overlying soft tissues appear unremarkable. IMPRESSION: No pleural effusion found. Mild interval worsening of a bilateral patchy pneumonia pattern slightly greater on the right than the left. Dictated by: Damian Pascual M.D. on 09/20/2018 at 10:12 Approved by: Damian Pascual M.D. on 09/20/2018 at 10:14
[2018-09-20] MEDS: CEFTRIAXONE 1 GM/50 ML FROZ.PIGGY IV ×2 (00:33→13:38)
--- NOTE | 2018-09-20 02:09 | PC.NURSE ---
pt had a low BP 86/54 at the beginning of the shift, asymptomatic. encouraged pt to drink fluids, he drank 1000cc, BP went up to 111/71. SOB on exertion desats to 86% then goes back up to 96-98%. pt denied pain or n/v. call light in reach. bed alarm active.
[2018-09-20] MEDS: ALBUTEROL 2.5 MG/3 ML NEB (ADULT) INH (06:23)
[2018-09-20 06:30] LABS: Add Manual Diff / Slide Review NO; Basophils Percent Auto 0.1 % (0-2); Eosinophils Percent Auto 0.2 % (2-4); Hematocrit 38.8 % (41-53); Hemoglobin 13.2 g/dL (13.5-17.5); Lymphocytes Percent Auto 10.8 % (25-40); Mean Corpuscular HGB Conc 33.9 % (30-36); Mean Corpuscular Hemoglobin 31.3 PG (26-34); Mean Corpuscular Volume 92.1 fL (80-100); Monocytes Percent Auto 9.6 % (3-14); Neutrophils Absolute Auto 5800 /uL (1500-7000); Neutrophils Percent Auto 79.3 % (50-75); Platelet Count 318 X10^3/uL (150-400); Red Blood Cell Count 4.21 X10^6/uL (4.5-5.9); Red Cell Distribution Width 13.3 % (11.6-14.8); White Blood Cell Count 7.3 X10^3/uL (4.5-11.0)
[2018-09-20 06:50] LABS: BUN Creatinine Ratio 17.5 (6-22); Blood Urea Nitrogen 14 mg/dL (9-20); Calcium 8.4 mg/dL (8.4-10.2); Carbon Dioxide 28 mmol/L (22-32); Chloride 101 mmol/L (98-107); Estimated Glomerular Filt Rate > 60.0 mL/min (>60); Glucose 86 mg/dL (80-110); HEMOLYSIS < 15 (0-50); Potassium 3.8 mmol/L (3.4-5.1); Sodium 139 mmol/L (137-145)
--- NOTE | 2018-09-20 09:09 | P.PN_ITS ---
Subjective Date Patient Seen: 09/20/18 Time Patient Seen: 09:00 Interval history: May be a bit better today. Breathing a little more comfortable but still finds am so short of breath at times. Has been up a bit that has been okay. is present today. Exam Vital Signs (past 8 hours): - 09/20/18 03:42 09/20/18 06:24 09/20/18 07:10 Temperature Pulse Rate 85 80 Respiratory Rate 18 20 Blood Pressure 98/65 Pulse Oximetry 94 97 95 09/20/18 07:30 Temperature 97.5 F L Pulse Rate 90 Respiratory Rate 20 Blood Pressure 102/61 Pulse Oximetry 92 Oxygen Delivery Method Nasal Cannula Oxygen Flow Rate 1 Narrative Exam Narrative: Lying quietly in bed no acute distress. HEENT unremarkable neck is benign chest shows a few basilar crackles heart is regular occasional ectopy no murmurs. Abdomen is soft nontender normoactive bowel tones extremities benign neurologically benign Objective Labs Result Diagrams: 09/20/18 05:45 09/20/18 05:45 Labs: Laboratory Results - last 24 hr 09/19/18 09/20/18 09/20/18 05:23 05:45 05:45 WBC 7.3 RBC 4.21 L Hgb 13.2 L Hct 38.8 L MCV 92.1 MCH 31.3 MCHC 33.9 RDW 13.3 Plt Count 318 Neut % (Auto) 79.3 H Lymph % (Auto) 10.8 L [place] % (Auto) 9.6 Eos % (Auto) 0.2 L Baso % (Auto) 0.1 Neut # (Auto) 5800 Total Counted 100 Seg Neutrophils % 82.0 H Band Neutrophils % 1.0 L Lymphocytes % (Manual) 9.0 L Atypical Lymphs % 1.0 H Monocytes % (Manual) 6.0 Eosinophils % (Manual) 1.0 L Neutrophils # (Manual) 6142 H RBC Morphology Normal morphology Sodium 139 Potassium 3.8 Chloride 101 Carbon Dioxide 28 BUN 14 Creatinine 0.80 Estimated GFR > 60.0 BUN/Creatinine Ratio 17.5 Glucose 86 Calcium 8.4 Assessment & Plan (1) Hypertension: Problem details: By history but has run low during this hospitalization, suspect in part due to sepsis. Overall stable. Current visit: Yes Status: Acute (2) Acute respiratory failure: Problem details: Improved finally, with much improved oxygen demand, perhaps to part with new antibiotics. Current visit: Yes Status: Acute (3) Hypoxia: Problem details: Considerable improvement as noted above, very nearly on room air at this point. Current visit: Yes Status: Acute (4) Community acquired pneumonia: Problem details: Perhaps some improvement with change in antibiotics judging by O2 demand at least. Otherwise stable. Qualifiers: Laterality: right Lung location: unspecified part of lung Qualified Code(s): J18.9 - Pneumonia, unspecified organism Current visit: Yes Status: Acute (5) Fatigue: Problem details: More related to his illness at this time I think. Current visit: Yes Status: Acute (6) Atrial fibrillation: Problem details: Remains in sinus. Current visit: Yes Status: Acute (7) Influenza A: Problem details: Presumed resolved. Current visit: No Status: Acute Plan: Assessment/Plan Narrative: Will get a chest x-ray this morning to check status and then follow labs continue same antibiotics overnight would hope that he would be off O2 by the morning and then will be in a better position to get him home.
[2018-09-20] MEDS: SODIUM CHLORIDE 0.9% FLUSH 10 ML IV ×3 (09:16→20:23)
[2018-09-20] MEDS: ENOXAPARIN 40 MG/0.4 ML SYRINGE SUBCUT (09:18)
[2018-09-20] MEDS: AZITHROMYCIN 250 MG TABLET 500 MG PO (09:18)
--- NOTE | 2018-09-20 09:50 | PT.IIE ---
Current Diagnoses Essential (primary) hypertension (09/14/18) Unspecified atrial fibrillation (09/14/18) Influenza due to other identified influenza virus with unspecified type of pneumonia (09/14/18) Influenza due to other identified influenza virus with other respiratory manifestations (09/14/18) Pneumonia, unspecified organism (09/14/18) Acute respiratory failure, unspecified whether with hypoxia or hypercapnia (09/14/18) Hypoxemia (09/14/18) Other fatigue (09/14/18) Surgical History (Last Reviewed 09/14/18 @ 13:58 by Jodi Burnett RN) Hx of hernia repair (Acute) Hx of right knee surgery (Acute) Hx of tonsillectomy (Acute) Medical History (Last Updated 09/18/18 @ 10:58 by Yue Levy RN) Influenza A (Acute 09/07/18) Pneumonia (Acute 09/14/18) Respiratory failure (Acute 09/14/18) ASHD (arteriosclerotic heart disease) (Acute) Anterior myocardial infarction (Acute ~2010) CAD (coronary artery disease) (Acute) HTN (hypertension) (Acute) Hyperlipidemia (Acute) Numbness (Acute) Paroxysmal SVT (supraventricular tachycardia) (Acute) Presence of bare metal stent in LAD coronary artery (Acute ~2010) Physical Therapy Inpatient Evaluation/Re-Eval M1 PT/OT-IP Prior Functional Status Start: 09/20/18 13:05 Freq: NEEDED Status: Active Protocol: Document 09/20/18 09:50 AB (Rec: 09/20/18 13:31 AB [id number]) Medical Review Prior Functional Status Medical History Reviewed Yes Communication able to make needs known Mobility and Gait pt stated that he is independent wta ll mobilities and ambulation without AD Social History Household Members spouse Living Arrangements House Number of Floors (Floors) One Floor Number of Stairs To Enter/Railing? 3 steps to enter with L rail ascending Home Environment High Toilet Walk in Shower Home Equipment Front Wheel Walker Grab Bars In Shower Employment Status Retired M2 PT-IP Current Condition Start: 09/20/18 13:05 Freq: NEEDED Status: Active Protocol: Document 09/20/18 09:50 AB (Rec: 09/20/18 13:31 AB [id number]) Physical Therapy Current Condition Current Condition Evaluation Date 09/20/18 Treatment Diagnosis PNA; influenza A; generalized weakness Onset Date 09/14/18 Precautions Other Precautions O2 sat M3 PT-IP Subjective Start: 09/20/18 13:05 Freq: NEEDED Status: Active Protocol: Document 09/20/18 09:50 AB (Rec: 09/20/18 13:31 AB [id number]) Subjective Physical Therapy Visit Type Type Initial Evaluation Visit Start Time 09:50 Visit Stop Time 10:20 Total Visit Minutes 30 Number of QUILLER TENDER Visits 0 Physical Therapy Visit Comments Patient Comments pt agreeable to do PT Therapy Pain Assessment Pain Present Pain Present Denied Pain M4 PT-IP Mobility and Gait Start: 09/20/18 13:05 Freq: NEEDED Status: Active Protocol: Document 09/20/18 09:50 AB (Rec: 09/20/18 13:31 AB [id number]) PT-Bed Mobility Assessment Supine to Sit Supine to Sit Independent Sit to Supine Sit to Supine Independent Scooting Scooting to Edge of Bed Independent PT-Transfer Assessment Sit to and From Stand Sit to and from Stand Independent Equipment Transfer Assistive Device None Orthotic/Prosthetic Devices or Brace: No Transfers Transfer Destination Bed Chair Transfer Technique Stand Step Pivot Transfer Ability Level of Assist Independent Comments Mobility Comments O2 sat with 1 L/min L2: 96-98% . talked to RT and stated that pt does not need O2 but wants to know O2 sat readings with PT without O2. O2 sat at room air: 94-98%. completed bed mobility and O2 sat decreased to ~ 85% with supine to sit. O2 sat increased to 93% at RA after seated rest and deep breathing. Gait Assessment Gait Gait Assistance Required: Standby Assistance Distance (Feet) 200 Assistive Devices Assistive Device None Gait Belt Orthotic/Prosthetic Devices or Brace: No Gait Deviations General Gait Pattern Antalgic Decreased Stride Length Factors Limiting Gait Function Factors Limiting Gait Function Decreased Activity Tolerance Decreased Strength Respiratory Distress Comments Gait Comments pt completed ambulation without AD SBA 200+100 ft. O2 sat decreased to 88% with ambulation at room air but increased to 93-96% after deep breathing and resting. Stair Climbing Assessment Evaluation Level of Assist On Stairs Contact Guard Assistance Devices Stair Climbing Assistive Devices None Technique/Endurance Stair Climbing Direction Ascend and Descend Stair Climbing Technique Step to Step Number of Steps Climbed 1 Query Text: Stair Climbing Set # Repetitions (reps) 2 Comments Stair Climbing Comments completed up/down step stool CGA with cues for safety. O2 sat decreased to 85% after stair climbing but increased to 93% after deep breathing. PT-Balance Assessment Sitting Balance and Reactions Static Sitting Balance Ability Good Dynamic Sitting Balance Ability Good Standing Balance and Reactions Static Standing Balance Ability Good Dynamic Standing Balance Ability Fair Device Used without AD M5 PT-IP Objective Assessments Start: 09/20/18 13:05 Freq: NEEDED Status: Active Protocol: Document 09/20/18 09:50 AB (Rec: 09/20/18 13:31 AB [id number]) Orientation Orientation/Cognition Level of Alertness Alert Orientation Name Age Birthday Month Date Year Day of Week Place Situation Safety Awareness Understands Safety Issues Memory Description No Deficits Noted Gross Range of Motion Lower Extremity ROM Assessment Within Functional Limits Strength Lower Extremity Strength Assessment Right Impaired Hip 4-/5 Knee 3+/5 Comments Strength Comments pt stated that R knee is bone on bone and is scheduled for surgery in a few weeks time Coordination Assessment Gross Coordination Gross Coordination WNL Sensation Assessment Sensation Gross Sensation WNL Muscle Tone Muscle Tone WNL Yes M6 PT-IP Treatment Start: 09/20/18 13:05 Freq: NEEDED Status: Active Protocol: Document 09/20/18 09:50 AB (Rec: 09/20/18 13:31 AB [id number]) Physical Therapy Treatment Education Education Provided Safety M7 PT-IP Assessment and Plan Start: 09/20/18 13:05 Freq: NEEDED Status: Active Protocol: Document 09/20/18 09:50 AB (Rec: 09/20/18 13:31 AB [id number]) PT Summary Assessment and Plan Potential Rehabilitation Potential Good Status of Condition at Evaluation Stable Summary Impairments Strength Gait Activity Tolerance Assessment Summary pt requiring SBA with ambulation without AD and presents with decrease activity tolerance affecting mobility. O2 sat decreases to ~ 85% with activity at room air but with good recovery with deep breathing and rest breaks. pt has spouse to assist him at home and may go home when medically stable. Goals Gait Goal Independent Gait Distance 300 Other Goals up/down 3 steps L rail ascending mod I Days to Meet Goals 3 Frequency of Treatment Frequency Of Treatment Once a Day Treatment Plan Physical Therapy Treatment Plan Gait Training Therapeutic Exercise Balance Retraining Discharge Planning Neuromuscular Re-ed Coordination Retraining Manual Therapy Other Recommendations and Next Treatment ambulation , stair climbing Focus Recommendations To Nursing Amount of Assist Needed Standby Assistance Discharge Recommendations PT Discharge Recommendations Home with Assistance
[2018-09-20] MEDS: predniSONE 20 MG TABLET 40 MG PO (13:39)
[2018-09-20] MEDS: ALBUTEROL/IPRATROPIUM 3 ML AMPUL INH (13:54)
[2018-09-20 14:42] LABS: Creatine Kinase 55 U/L (55-170)
[2018-09-20 14:56] LABS: Troponin I < 0.012 ng/mL (0.01-0.034)
--- NOTE | 2018-09-20 15:55 | PC.NURSE ---
Day Shift- Around 1350, pt stated feeling mid lower chest discomfort, indigestion, Maalox offered and pt stated that this medication does not work for him. Pt reported feeling slightly SOB and a prn duoneb treatment was offered. RT paged. After RT assessment, RT reported to this senior technical writer pt had increased in mid chest discomfort with increased neck pain and left arm pain and weakness. EKG was obtained. Upon this writers assessment, pt had equal hand computer help desk specialist strength. Pain also reported to back upper and lower. Pt states having ingestion at home and takes Tums and Rolaids prn. VSS, O2 1l NC placed previously. see flowsheet for vitals. staff development coordinator consulted and spoke with Dr. Jara. Order for cardiac enzymes obtained. Pt place don telemetry monitoring for now, order needed to continue if needed from Physician, Evening RN aware. Upon reassessment at 1445, pt stated feeling better overall and pain sites listed above had decreased. O2 stats remained 97% on 1L NC. Upon reassessment at 1505, pt stated he had minimal discomfort to mid chest and no pain to neck or left arm, stated feeling better improved again.
[2018-09-20] MEDS: LOSARTAN 25 MG TABLET PO (17:07)
--- NOTE | 2018-09-20 17:33 | PC.NURSE ---
Addendum entered by Louisa Winchester R.N. 09/20/18 21:14: pt's HR continues to increase with activity, up to 150's during early evening (while attempting to use the urinal in bed). Dr. Siu notified; PO metoprolol that was withheld during the day ordered to be given and to call MD back if HR continues to be uncontrolled. HR currently 90-100 while asleep. Original Note: SHIFT NOTE slightly flat affect. Ox4. modified independent in room as at bedside to assist with ADLs. pt on1L O2 via NC. reports some SOB with activity, spO2 occasionally dips down in 80's with activity but able to increase to 90's-100 when allowed to rest. at approximately 1700, got a call from ICU stating pt's HR up to 170's. pt had just gone to the bathroom with 's assist. SpO2 in mid 80's. pt allowed to rest and HR decreased tp 90-110's and SpO2 increased to 100%. educated pt and to use urinal for bathroom and safety precautions. scheduled losartan given. call light within reach.
[2018-09-20] MEDS: ATORVASTATIN 20 MG TABLET 40 MG PO (20:23)
[2018-09-20] MEDS: METOPROLOL ER 50 MG TABLET PO (20:23)
[2018-09-21] VITALS (11 sets, daily range): BP systolic 101–139; BP diastolic 55–78; PULSE 75–98; RESP 18–20; TEMP 36.3–36.7; O2SAT 91–99
[2018-09-21] MEDS: CEFTRIAXONE 1 GM/50 ML FROZ.PIGGY IV ×2 (01:03→13:12)
[2018-09-21] MEDS: SODIUM CHLORIDE 0.9% FLUSH 10 ML IV ×3 (01:04→13:12)
[2018-09-21] MEDS: ALBUTEROL 2.5 MG/3 ML NEB (ADULT) INH (05:54)
[2018-09-21 05:57] LABS: Add Manual Diff / Slide Review NO; Basophils Percent Auto 1.1 % (0-2); Eosinophils Percent Auto 0.3 % (2-4); Hematocrit 38.7 % (41-53); Hemoglobin 13.3 g/dL (13.5-17.5); Lymphocytes Percent Auto 8.7 % (25-40); Mean Corpuscular HGB Conc 34.3 % (30-36); Mean Corpuscular Hemoglobin 31.5 PG (26-34); Mean Corpuscular Volume 91.7 fL (80-100); Monocytes Percent Auto 11.2 % (3-14); Neutrophils Absolute Auto 6300 /uL (1500-7000); Neutrophils Percent Auto 78.7 % (50-75); Platelet Count 299 X10^3/uL (150-400); Red Blood Cell Count 4.22 X10^6/uL (4.5-5.9); Red Cell Distribution Width 13.5 % (11.6-14.8)
[2018-09-21 06:30] LABS: BUN Creatinine Ratio 22.9 (6-22); Blood Urea Nitrogen 16 mg/dL (9-20); Calcium 8.3 mg/dL (8.4-10.2); Carbon Dioxide 26 mmol/L (22-32); Chloride 102 mmol/L (98-107); Estimated Glomerular Filt Rate > 60.0 mL/min (>60); Glucose 94 mg/dL (80-110); HEMOLYSIS < 15 (0-50); Potassium 4.3 mmol/L (3.4-5.1); Sodium 135 mmol/L (137-145)
--- NOTE | 2018-09-21 06:41 | PC.NURSE ---
cpc: 0640 Pt has been on 1 L O2 overnight. RT in with pt and is now on RA, continuous pulse ox on with sats 91-92%. Pt denies dyspnea and pain.
[2018-09-21] MEDS: predniSONE 10 MG TABLET 30 MG PO (08:24)
[2018-09-21] MEDS: ENOXAPARIN 40 MG/0.4 ML SYRINGE SUBCUT (08:24)
[2018-09-21] MEDS: AZITHROMYCIN 250 MG TABLET 500 MG PO (08:24)
--- NOTE | 2018-09-21 10:58 | PT.IPTN ---
Current Diagnoses Essential (primary) hypertension (09/14/18) Unspecified atrial fibrillation (09/14/18) Influenza due to other identified influenza virus with unspecified type of pneumonia (09/14/18) Influenza due to other identified influenza virus with other respiratory manifestations (09/14/18) Pneumonia, unspecified organism (09/14/18) Acute respiratory failure, unspecified whether with hypoxia or hypercapnia (09/14/18) Hypoxemia (09/14/18) Other fatigue (09/14/18) Physical Therapy Treatment Note M2 PT-IP Current Condition Start: 09/20/18 13:05 Freq: NEEDED Status: Active Protocol: Document 09/21/18 10:58 RCC (Rec: 09/21/18 11:06 [facility] [id number]) Physical Therapy Current Condition Current Condition Evaluation Date 09/20/18 Treatment Diagnosis PNA; influenza A; generalized weakness Onset Date 09/14/18 Precautions Other Precautions O2 sat M3 PT-IP Subjective Start: 09/20/18 13:05 Freq: NEEDED Status: Active Protocol: Document 09/21/18 10:58 RCC (Rec: 09/21/18 11:06 [facility] [id number]) Subjective Physical Therapy Visit Type Type Treatment Note Visit Start Time 10:44 Visit Stop Time 10:58 Total Visit Minutes 14 Number of RESOURCE SPECIALIST TEACHER Visits 0 Physical Therapy Visit Comments Patient Comments pt states he is doing pretty well today. M4 PT-IP Mobility and Gait Start: 09/20/18 13:05 Freq: NEEDED Status: Active Protocol: Document 09/21/18 10:58 RCC (Rec: 09/21/18 11:06 [facility] [id number]) PT-Transfer Assessment Sit to and From Stand Sit to and from Stand Independent Equipment Transfer Assistive Device None Gait Belt Transfers Transfer Destination Chair Transfer Technique Stand Step Pivot Transfer Ability Level of Assist Independent Comments Mobility Comments pt able to don pants and shoes indep. Gait Assessment Gait Gait Assistance Required: Independent Distance (Feet) 300 Assistive Devices Assistive Device None Gait Belt Gait Deviations General Gait Pattern Within Normal Limits Factors Limiting Gait Function Factors Limiting Gait Function Decreased Activity Tolerance Comments Gait Comments slight lateral sway occasionally as he fatigued, no loss of balance O2 saturation on RA: 89-92% during ambulation, ID 90-109 bpm with ambulation. Stair Climbing Assessment Evaluation Level of Assist On Stairs Independent Devices Stair Climbing Assistive Devices Left Railing Technique/Endurance Stair Climbing Direction Ascend and Descend Stair Climbing Technique Step Over Step Number of Steps Climbed 3 Query Text: Stair Climbing Set # Repetitions (reps) 1 M5 PT-IP Objective Assessments Start: 09/20/18 13:05 Freq: NEEDED Status: Active Protocol: Document 09/20/18 09:50 AB (Rec: 09/20/18 13:31 AB [id number]) Orientation Orientation/Cognition Level of Alertness Alert Orientation Name Age Birthday Month Date Year Day of Week Place Situation Safety Awareness Understands Safety Issues Memory Description No Deficits Noted Gross Range of Motion Lower Extremity ROM Assessment Within Functional Limits Strength Lower Extremity Strength Assessment Right Impaired Hip 4-/5 Knee 3+/5 Comments Strength Comments pt stated that R knee is bone on bone and is scheduled for surgery in a few weeks time Coordination Assessment Gross Coordination Gross Coordination WNL Sensation Assessment Sensation Gross Sensation WNL Muscle Tone Muscle Tone WNL Yes M6 PT-IP Treatment Start: 09/20/18 13:05 Freq: NEEDED Status: Active Protocol: Document 09/20/18 09:50 AB (Rec: 09/20/18 13:31 AB [id number]) Physical Therapy Treatment Education Education Provided Safety M7 PT-IP Assessment and Plan Start: 09/20/18 13:05 Freq: NEEDED Status: Active Protocol: Document 09/21/18 10:58 RCC (Rec: 09/21/18 11:06 [facility] [id number]) PT Summary Assessment and Plan Summary Progress Towards Goals Safe For Discharge Assessment Summary Pt is indep. with sit<->stand, and gait in hallway for 300+ ft. His O2 saturation initially was 91% on RA, decreased slightly for a moment to 89% after 200 ft of gait and stairs, but quickly increased to 90% and greater and remained above 90% the entire rest of session. Pt at 92% at end of session for O2 saturation, and ID at 95 bpm and declining steadily. Pt was fatigued, but overall no c/o SOB or dizziness or lightheadedness during session . Pt at this time is cleared to d/c when medically stable, and no further acute PT needs at this time as he has achieved all initial established goals, and is indep. with all mobility. Goals Gait Goal Independent Gait Distance 300 Other Goals up/down 3 steps L rail ascending mod I Days to Meet Goals 3 Frequency of Treatment Frequency Of Treatment Discharge Recommendations To Nursing Amount of Assist Needed Independent Discharge Recommendations PT Discharge Recommendations Home with Assistance
--- NOTE | 2018-09-21 12:37 | CM.DPC ---
DCP: continued: case received and discussed in Team Rounds. ? of home o2 need, RT was poised to assess for this at d/c if need be. LUIS Lee said that PT Chava would be able to incorporate 02/RA checks while working with pt today. Reviewed notes from PT Chava. Pt did extremely well today. Has been cleared for home setting by Chava and RA sats are all 89 or > now. Dr. Jara is here now, confirms pt is much improved today and will be fine for home and clinic followup. Pt's is in room; pt will d/c home as soon as d/c paperwork is completed.
--- NOTE | 2018-09-21 12:52 | PM.DS.1 ---
History of Present Illness Date Patient Seen: 09/21/18 Time Patient Seen: 12:53 Chief complaint: TROUBLE BREATHING Narrative: See H&P Discharge Providers Date of admission: 09/14/18 12:05 Primary care physician: Dick Jara MD Consults: 09/14/18 10:14 Consult to Respiratory Therapy Evaluate & Treat Comment: Physician Instructions: Evaluate and treat 09/14/18 13:42 Consult to Respiratory Therapy Evaluate & Treat Comment: PNA Physician Instructions: Evaluate and treat 09/19/18 12:56 Consult to Physical Therapy Evaluate & Treat Comment: Generalized weakness Physician Instructions: Evaluate and Treat Discharge provider: Dick Jara MD Discharge Date: 09/21/18 Summary Discharge Diagnosis: Pneumonia, community-acquired Acute respiratory failure Intermittent atrial fibrillation Chest pain with negative cardiac workup Recent influenza Hypertension Volume depletion Hospital Course: Patient had been diagnosed with influenza a a week or so prior to admission and was feeling better from those symptoms but then developed more shortness of breath with more persistent cough. So he presented again at the emergency room where he is evaluated and found to have significant evidence of pneumonia thought at this time to be more bacterial, with significant hypoxia. Was admitted placed on IV Levaquin as well as IV fluids, and oxygen with respiratory therapy. He saw some improvement over the ensuing 1st few days but maintained a fairly high O2 demand. So switched antibiotics 2 days ago with good results within 24 hr his O2 demand to drop significantly and by the time of discharge he was adequate on room air. He was feeling also better up and around appetite okay, taking fluids, and eager for discharge. Status at Discharge Cognitive/behavioral status at discharge: None Functional status at discharge: independent ambulation Overall status at discharge: patient is progressing back to baseline Time Spent with Patient Greater than 30 minutes Exam Vital Signs (past 8 hours): - 09/21/18 05:54 09/21/18 06:09 09/21/18 06:40 Temperature Pulse Rate 75 Respiratory Rate 18 Blood Pressure Pulse Oximetry 98 92 91 09/21/18 07:10 09/21/18 08:00 09/21/18 08:30 Temperature 97.4 F L Pulse Rate 94 H Respiratory Rate 20 Blood Pressure 113/55 L Pulse Oximetry 93 91 92 Oxygen Delivery Method Room Air Oxygen Flow Rate 0 Objective Labs Result Diagrams: 09/21/18 05:41 09/21/18 05:41 Labs: Laboratory Results - last 24 hr 09/20/18 09/21/18 09/21/18 14:25 05:41 05:41 WBC 8.0 RBC 4.22 L Hgb 13.3 L Hct 38.7 L MCV 91.7 MCH 31.5 MCHC 34.3 RDW 13.5 Plt Count 299 Neut % (Auto) 78.7 H Lymph % (Auto) 8.7 L [place] % (Auto) 11.2 Eos % (Auto) 0.3 L Baso % (Auto) 1.1 Neut # (Auto) 6300 Sodium 135 L Potassium 4.3 Chloride 102 Carbon Dioxide 26 BUN 16 Creatinine 0.70 Estimated GFR > 60.0 BUN/Creatinine Ratio 22.9 H Glucose 94 Calcium 8.3 L Total Creatine Kinase 55 CK-MB (CK-2) TNP CK-MB (CK-2) Rel Index TNP Troponin I < 0.012 Discharge Plan Discharge Plan Patient Disposition: Home Discharge Med Rec/Prescriptions Prescriptions: New cefuroxime axetil 500 mg tablet 500 mg PO Q12H 10 Days Qty: 20 RF: 0 prednisone 10 mg tablet 10 mg PO DAILY Qty: 6 RF: 0 Continue atorvastatin 40 mg tablet 40 mg PO BEDTIME RF: 0 metoprolol succinate 50 mg tablet extended release 24 hr 50 mg PO QAM RF: 0 aspirin [Adult Low Dose Aspirin] 81 mg tablet,delayed release (DR/EC) 81 mg PO DAILY RF: 0 losartan 25 mg tablet 25 - 50 mg PO BEDTIME RF: 0 acetaminophen [Tylenol Extra Strength] 500 mg Tablet 1,000 mg PO Q6H PRN (Reason: fever, pain r/t flu) RF: 0 ibuprofen 200 mg Tablet 400 mg PO TID RF: 0 Follow up/Referrals: Dick Jara MD [Primary Care Provider] - 1 Week Provider Discharge Instructions Diet: Diet as Tolerated Activity: as tolerated Skin/Wound/Dressing Care Report to your healthcare provider any signs of infection, such as:: chills, fever, night sweats, increased pain, unusual drainage and unusual redness Discharge Data Primary Care Provider: Dick Jara Attending Provider: Eamon Feldman Admzachery Date/Time: 09/14/18 12:05
[2018-09-21] MEDS: METOPROLOL ER 50 MG TABLET PO (14:21)
--- NOTE | 2018-09-21 14:50 | PC.NURSE ---
Day Shift- Metoprolol held this AM as was last given 09/20 at 2020. Spoke with Zia in pharmacy at 1410 regarding when for pt to next dose in order to get back on pt's home schedule of taking medication in morning. Suggested to give prior to discharge and next dose will be tomorrow morning. Pt made aware and agreeable to taking dose. BP 110/71 Pulse 98, pt states takes for HR control. Also made aware of symptoms of Metoprolol and to watch for dizziness, light-headedness, weakened pulse. Enc po fluids. Reviewed discharge summary with pt and his Chato, no voiced concerns. 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 Denied pain, pt joking and smiling and stated feeling much better today. Pt left unit at 1440 via wheelchair with this policy writer, his at side and all belongings.
== END 2018-09-21 14:40 | disposition home or self-care (01) | DRG 193 ==
LOC: ED 12:05 → AC 12:11 → ICU 13:38 → AC 09-16 13:40
PROVIDERS: Family Medicine; Admitting Provider Family Medicine; Emergency Provider Emergency Medicine; PCP Family Medicine; Visit Provider Family Medicine
DX: J10.00 Influenza due to other identified influenza virus with unspecified type of pneumonia (principal); J96.01 Acute respiratory failure with hypoxia; I47.1 Supraventricular tachycardia; J12.9 Viral pneumonia, unspecified; J15.9 Unspecified bacterial pneumonia; I25.10 Atherosclerotic heart disease of native coronary artery without angina pectoris; I10 Essential (primary) hypertension; E78.5 Hyperlipidemia, unspecified; E86.0 Dehydration; I48.91 Unspecified atrial fibrillation
CPT/HCPCS: 36415; 36591; 36600; 71045; 71275; 80048; 80053; 82550; 82553; 82805; 83605; 83735; 83880; 84145; 84484; 85025; 85379; 85610; 85730; 87040; 87070; 87077; 87205; 87797; 93005; 93041; 93306; 94618; 94640; 94667; 94760; 94762; 94770; 96365; 96366; 96375; 97116; 97161; 99285; J1650; J1885; J1956; J2930; J7613; Q9967

== ENCOUNTER → 2018-10-11 13:32 | Outpatient (CLI) | payer OTHER, SELFPAY ==
[2018-09-14 14:05] VITALS: BMI 29.2
[2018-10-11 14:08] LABS: Add Manual Diff / Slide Review NO; Basophils Absolute Auto 100 /uL (0-100); Basophils Percent Auto 1.3 % (0-2); Eosinophils Absolute Auto 300 /uL (0-450); Eosinophils Percent Auto 4.3 % (2-4); Hematocrit 45.3 % (41-53); Hemoglobin 15.1 g/dL (13.5-17.5); Lymphocytes Absolute Auto 1600 /uL (1100-4500); Lymphocytes Percent Auto 23.1 % (25-40); Mean Corpuscular HGB Conc 33.3 % (30-36); Mean Corpuscular Hemoglobin 31.1 PG (26-34); Mean Corpuscular Volume 93.5 fL (80-100); Monocytes Absolute Auto 900 /uL (0-900); Monocytes Percent Auto 12.7 % (3-14); Neutrophils Absolute Auto 3900 /uL (1500-7000); Neutrophils Percent Auto 58.6 % (50-75); Platelet Count 277 X10^3/uL (150-400); Red Blood Cell Count 4.84 X10^6/uL (4.5-5.9); Red Cell Distribution Width 13.7 % (11.6-14.8); White Blood Cell Count 6.7 X10^3/uL (4.5-11.0)
[2018-10-11 14:32] LABS: Carbon Dioxide 29 mmol/L (22-32); Chloride 103 mmol/L (98-107); HEMOLYSIS < 15 (0-50); Potassium 4.2 mmol/L (3.4-5.1); Sodium 140 mmol/L (137-145)
== END ==
PROVIDERS: Family Provider Family Medicine; PCP Family Medicine; Visit Provider Orthopaedic Surgery
DX: Z01.818 Encounter for other preprocedural examination (principal)
CPT/HCPCS: 36415; 80051; 85025; 93005

== ENCOUNTER 2018-10-23 11:52 | Day surgery (SDC) | payer OTHER, SELFPAY ==
[2018-09-11 12:08] VITALS: BMI 30.7
[2018-09-14 14:05] VITALS: BMI 29.2
[2018-10-23] VITALS (15 sets, daily range): BP systolic 90–132; BP diastolic 54–87; PULSE 54–72; RESP 11–18; TEMP 36.1–37.1; O2SAT 92–97; BMI 30.7
--- NOTE | 2018-10-23 12:03 | PM.PREOP ---
Pre-operative Note Interval Note History & Physical reviewed/Exam performed by Physician: Yes Changes to H&P: No
--- NOTE | 2018-10-23 12:04 | P.OP_ITS ---
Operative Date/Time/Diagnoses Date of procedure: 10/23/18 Time of procedure: 14:56 Pre-op diagnosis: Right knee osteoarthritis Post-op diagnosis: same Procedure & Clinicians Procedure: Right total knee arthroplasty Same procedure as scheduled: Yes Indications: The patient presents today for total knee arthroplasty after failure of conservative treatment. The nature of the procedure including the risks and benefits, alternatives, postoperative course and expected outcome were discussed and all questions answered. Consent was obtained. Operative site confirmed and marked. Surgeon: Bakari Alba Briquette Machine Operator: Manish Pruett Anesthesia Type: Spinal and Local Operative Notes Findings: Severe medial compartment osteoarthritis. Closure Type: primary Specimen(s): none sent Prosthetic devices, grafts, tissues, transplants, or devices: Witt [employer]phCan[employer]ne BCS: 6 femoral component, 6 tibial component, 9 mm BCS polyethylene tray and 35 x 9 mm round patella Applied: implant(s) Estimated Blood Loss (mL): 50 Blood products transfused: none Tourniquet time (min): 38 Procedure in detail: The patient was taken to the operative suite and placed under spinal anesthesia with sedation. The patient was given prophylactic antibiotics prior to surgery. The patient was also given tranexamic acid, 1 g, just prior to surgery for postoperative hemostasis. The lateral knee was prepped and the joint injected with 20 mL of 1% Lidocaine with epinephrine. The knee was then prepped and draped in usual sterile fashion. The leg was exsanguinated with an Esmarch dressing and the tourniquet raised to 250 torr. A 15 cm anterior incision was made. Next a medial trivector arthrotomy was made. The extensor mechanism was marked to ensure accurate repair. Initial exposing dissection was carried out medially and laterally. The knee was then extended and the patellar thickness was measured and a cut made removing approximately 9 mm of bone with a goal of restoring normal patellar thickness. The patella was then sized and drilled. Some excess lateral bone was excised and the patellofemoral ligament released. The tourniquet was then released. The knee was then flexed and the [employer] femoral guide was placed. The anterior pins were placed and the distal rotation holes drilled. The distal cutting guide was placed and the templated distal femoral cut was made. The templating cutting block was then placed and the anterior, posterior and chamfer cuts made. The [employer] tibial guide was placed and the alignment checked along the axis of the proximal tibial with a liam. The proximal tibial cut was then made with an oscillating saw. All meniscus and bony debris was then removed. Flexion extension gaps were checked. No specific balancing was required other than routine exposure and removal of osteophytes. The soft tissues were then injected with a combination of 20 mL of half percent Marcaine with epinephrine and 20 mL of Exparel. The trial components were then placed. The knee went into full extension and flexion beyond 120?. There was excellent medial- lateral balance throughout motion. Patellar tracking was excellent. The trial components were removed and size is confirmed for the final implants. The knee was then exsanguinated with an Esmarch dressing and the tourniquet reapplied for cementing. The knee was cleansed with Pulsavac irrigation and dried. The final components were cemented in with high viscosity vacuum mixed bone cement with antibiotics. The knee was held in extension and the patellar clamp until the cement had adequately cured. The knee was then irrigated with dilute Betadine solution. The extensor mechanism was closed with 5 interrupted #1 Vicryl sutures in 90 degrees of flexion. The joint was then injected with a combination of 1 g of tranexamic acid and 20 mL of quarter percent Marcaine with epinephrine. The subcutaneous tissue was closed with 2-0 Vicryl. The skin was closed with cristian and surgical adhesive. An Aquacel dressing and Sukhdev wrap were then applied. Complications: none Condition: stable Disposition: PACU Plan for aftercare: [facility] protocol for total knee arthroplasty.
[2018-10-23] MEDS: PREGABALIN 75 MG CAPSULE PO (12:29)
[2018-10-23] MEDS: ACETAMINOPHEN 325 MG TABLET 975 MG PO ×3 (12:29→22:56)
[2018-10-23] MEDS: LACTATED RINGERS 1,000 ML 42 ML IV ×2 (12:29→14:30)
[2018-10-23] MEDS: CELECOXIB 200 MG CAPSULE PO (12:30)
--- NOTE | 2018-10-23 13:00 | DI.RAD.S_ITS ---
PROCEDURE: XR KNEE RT 1TO2V INDICATIONS: prosthesis placement TECHNIQUE: 2 view(s) of the knee acquired. COMPARISON: [facility], , KNEE 3V RIGHT, 07/18/2016, 11:41. FINDINGS: Bones: Patient is status post knee joint arthroplasty. Hardware components are in expected positions. Visualized bony structures are intact. Soft tissues: Overlying postoperative changes are noted. IMPRESSION: Expected postoperative appearance Dictated by: Ranjeet Jacobsen M.D. on 10/23/2018 at 16:39 Approved by: Ranjeet Jacobsen M.D. on 10/23/2018 at 16:39
[2018-10-23] MEDS: CEFAZOLIN 2 GM/100 ML FROZ.PIGGY IV ×2 (13:10→22:58)
[2018-10-23] MEDS: TRANEXAMIC ACID 1,000 MG VIAL 1000 MG INJ ×2 (13:30→15:00)
--- NOTE | 2018-10-23 13:59 | SUR.OPER ---
Supine on padded OR bed. Pillow under head, arms secured on padded armboards <90 degree abduction. Safety belt across torso. Non-operative leg secured with tape over blanket over lower leg. Operative leg secured in DeMayo/Nicolás positioner. Foam padded brace at thigh of operative leg.
[2018-10-23] MEDS: LIDOCAINE 1% W/EPI INJ 20 ML INJ (14:05)
[2018-10-23] MEDS: BUPIVACAINE 0.5% W/ EPI (PF) 20 ML, BUPIVACAINE LIPOSOME 266 MG, SODIUM CHLORIDE 0.9% 8... INJ (14:07)
[2018-10-23] MEDS: BUPIVACAINE 0.5% W/ EPI (PF) 10 ML, TRANEXAMIC ACID 1,000 MG, SODIUM CHLORIDE 0.9% 20 ML INJ (14:10)
[2018-10-23] MEDS: POVIDONE-IODINE 15 ML, SODIUM CHLORIDE 0.9% 250 ML TOP (14:11)
[2018-10-23] MEDS: LACTATED RINGERS 1,000 ML 125 ML IV (18:03)
[2018-10-23] MEDS: METOPROLOL ER 50 MG TABLET PO (18:04)
--- NOTE | 2018-10-23 21:50 | PC.NURSE ---
1600- Pt arrived to room 227 from PACU via bed. A/O x3, right knee with aquacell/avni wrap CDI, ice pack to knee, remains numb from T-10 down on right side, left side able to lift leg and wiggle toes. 97%RA, LS clear denies SOB. BT + denies nausea. drinking fluids, advanced diet to reg for dinner. L hand LR @ 125 infusing. 1900- CMS ++ full sensation except for bladder. Pt up weight bearing 25% with FWW, ambulated to [facility] and one loop in [facility]. No urine at this time. tolerated dinner. drinking coffee. 2100- Bladder scan for 800mL. Pt up to BRP to void- 400 urine out. Pt reports can not completely empty bladder as baseline. Dr Alba notified.
[2018-10-23] MEDS: LOSARTAN 25 MG TABLET PO (22:57)
[2018-10-23] MEDS: ATORVASTATIN 20 MG TABLET 40 MG PO (22:57)
[2018-10-23] MEDS: ASPIRIN EC 81 MG TABLET PO (22:57)
[2018-10-23] MEDS: IBUPROFEN 600 MG TABLET PO (23:01)
[2018-10-23] MEDS: OXYCODONE IR 5 MG TABLET PO (23:37)
[2018-10-24 05:00] VITALS: BP 137/86; PULSE 51; RESP 18; TEMP 36.4; O2SAT 95
[2018-10-24 05:09] LABS: Hematocrit 38.9 % (41-53); Hemoglobin 12.8 g/dL (13.5-17.5)
[2018-10-24] MEDS: CEFAZOLIN 2 GM/100 ML FROZ.PIGGY IV (05:28)
[2018-10-24] MEDS: OXYCODONE IR 5 MG TABLET PO (07:44)
[2018-10-24] MEDS: ACETAMINOPHEN 325 MG TABLET 975 MG PO (07:45)
--- NOTE | 2018-10-24 07:48 | PM.DS.1 ---
History of Present Illness Date Patient Seen: 10/24/18 Time Patient Seen: 07:28 Chief complaint: *OPB* [id number] Narrative: Patient seen bedside s/p R. TKA with Dr. Alba on 10/23/18. Patient is POD #1. He is doing well, his pain is controlled, he denies CP, SOB, and calf pain. He has not been up with PT yet but is anxious to go home today. His will be home with him. Discharge Providers Primary care physician: Dick Jara MD Consults: 10/23/18 16:58 Consult to Discharge Planning Routine Comment: Consult to Physical Therapy Evaluate & Treat Comment: Physician Instructions: postop TKA protocol Consult to Respiratory Therapy Evaluate & Treat Comment: Physician Instructions: Evaluate and treat Discharge provider: Jackie Alves PA-C Discharge Date: 10/24/18 Summary Discharge Diagnosis: Right knee osteoarthritis Hospital Course: Patient was admitted to the hospital s/p R. TKA with Dr. Alba on 10/23/18. Patient tolerated the procedure well with no major complications. He was transferred to the acute care floor and placed on the standard joint replacement pathway and protocol. He was seen by PT and recommended for discharge home. Patient was stable and ready for discharge on 10/24/18. Status at Discharge Cognitive/behavioral status at discharge: Alert & oriented x3 Functional status at discharge: independent ambulation Overall status at discharge: patient is progressing back to baseline Time Spent with Patient Less than 30 minutes Exam Vital Signs (past 8 hours): - 10/24/18 05:00 Temperature 97.5 F L Pulse Rate 51 L Respiratory Rate 18 Blood Pressure 137/86 Pulse Oximetry 95 Fraction of Inspired Oxygen 21 Oxygen Delivery Method Room Air Oxygen Flow Rate 0 Narrative Exam Narrative: WDWN NAD A&Ox3. Dressing on right knee is CDI, no signs of drainage and minimal erythema. Mild generalized swelling around the joint. Calf is soft and compressible. Full ROM of the ankle. NVI in the RLE. Objective Labs Result Diagrams: 10/24/18 04:55 Labs: Laboratory Results - last 24 hr 10/24/18 04:55 Hgb 12.8 L Hct 38.9 L Discharge Plan Discharge Plan Patient Disposition: Home Discharge comment: d/c after cleared by PT Discharge Med Rec/Prescriptions Prescriptions: New acetaminophen 325 mg Tablet 975 mg PO TID Qty: 0 RF: 0 aspirin 81 mg Tablet,Delayed Release (Dr/Ec) 81 mg PO BID Qty: 0 RF: 0 oxycodone 5 mg Tablet 5 mg PO Q3HR PRN (Reason: Pain, Moderate (4-6)) Qty: 0 RF: 0 Continue atorvastatin 40 mg tablet 40 mg PO BEDTIME RF: 0 metoprolol succinate 50 mg tablet extended release 24 hr 50 mg PO QAM RF: 0 losartan 25 mg tablet 25 - 50 mg PO BEDTIME RF: 0 Discontinued aspirin [Adult Low Dose Aspirin] 81 mg tablet,delayed release (DR/EC) 81 mg PO DAILY RF: 0 acetaminophen [Tylenol Extra Strength] 500 mg Tablet 1,000 mg PO Q6H PRN (Reason: fever, pain r/t flu) RF: 0 ibuprofen 200 mg Tablet 400 mg PO TID RF: 0 Follow up/Referrals: Dick Jara MD [Primary Care Provider] - Bakari Alba MD [Physician] - (Follow up at your previously scheduled post-op visit in 5-7 days.) Discharge Orders: Discharge (Order); Ordered 10/24/18 Ordered By: Jackie Alves Provider Discharge Instructions Diet: Diet as Tolerated Activity: weightbearing as tolerated, use walker until physical therapy says that you can discontinue it. Cold/Heat Therapy: Apply ice 20 minutes at a time at least hourly while awake Skin/Wound/Dressing Care Report to your healthcare provider any signs of infection, such as:: chills, fever, night sweats, increased pain, unusual drainage and unusual redness Dressing: Keep dressing clean, dry, and intact. Remove avni wrap on post-op day #2. Keep aquacel in place. May shower with dressing in place but no soaking. Visit Report/Discharge Packet Instructions: DI for Knee Replacement Stand Alone Forms: Surgery Discharge Discharge Data Primary Care Provider: Dick Jara Attending Provider: Bakari Alba Discharges patient from system. Discharge Date/Time: 10/24/18 11:13 Quality VTE Deep Vein Thrombosis/Pulmonary Embolism Present on Admission: No
[2018-10-24 08:00] VITALS: BP 132/83; PULSE 56; RESP 16; O2SAT 95
[2018-10-24 08:37] VITALS: PULSE 60; RESP 16; O2SAT 95
[2018-10-24] MEDS: METOPROLOL ER 50 MG TABLET PO (09:13)
[2018-10-24] MEDS: ASPIRIN EC 81 MG TABLET PO (09:13)
--- NOTE | 2018-10-24 09:55 | PT.IIE ---
Current Diagnoses Unilateral primary osteoarthritis, right knee (10/23/18) Surgery Performed Operation Date: 10/09/18 08:45 <No data on this case meets the specified criteria> Operation Date: 10/23/18 14:00 Actual Procedures p Total Knee Arthroplasty(Right) - Bakari Alba MD Surgical History (Last Reviewed 09/14/18 @ 13:58 by Jodi Burnett, TULIO) Hx of hernia repair (Acute) Hx of right knee surgery (Acute) Hx of tonsillectomy (Acute) Medical History (Last Updated 09/18/18 @ 10:58 by Yue Levy RN) ASHD (arteriosclerotic heart disease) (Acute) Anterior myocardial infarction (Acute ~2010) CAD (coronary artery disease) (Acute) HTN (hypertension) (Acute) Hyperlipidemia (Acute) Influenza A (Acute 09/07/18) Numbness (Acute) Paroxysmal SVT (supraventricular tachycardia) (Acute) Pneumonia (Acute 09/14/18) Presence of bare metal stent in LAD coronary artery (Acute ~2010) Respiratory failure (Acute 09/14/18) Physical Therapy Inpatient Evaluation/Re-Eval M1 PT/OT-IP Prior Functional Status Start: 10/24/18 11:03 Freq: NEEDED Status: Discharge Protocol: Document 10/24/18 09:55 AB (Rec: 10/24/18 11:14 AB [email or web address]) Medical Review Prior Functional Status Medical History Reviewed Yes Communication able to make needs known Mobility and Gait staed that he is independent with all mobilities and ambulation without AD Social History Household Members spouse Living Arrangements House Number of Floors (Floors) Two Floors Number of Stairs To Enter/Railing? pt stays on main level of the house has 3 steps with bilateral wide rails and can only hold on to ome rail at a time Home Environment High Toilet Walk in Shower Home Equipment Front Wheel Walker Quad Cane Straight Cane Grab Bars In Shower Employment Status Retired M2 PT-IP Current Condition Start: 10/24/18 11:03 Freq: NEEDED Status: Discharge Protocol: Document 10/24/18 09:55 AB (Rec: 10/24/18 11:14 AB [email or web address]) Physical Therapy Current Condition Current Condition Evaluation Date 10/24/18 Treatment Diagnosis s/p R TKA; difficulty in walking Onset Date 10/23/18 Weight Bearing Status Weight Bearing Status Weight Bear as Tolerated M3 PT-IP Subjective Start: 10/24/18 11:03 Freq: NEEDED Status: Discharge Protocol: Document 10/24/18 09:55 AB (Rec: 10/24/18 11:14 AB [email or web address]) Subjective Physical Therapy Visit Type Type Initial Evaluation Visit Start Time 09:55 Visit Stop Time 10:40 Total Visit Minutes 45 Number of HYDROGEOLOGY PROFESSOR Visits 0 Physical Therapy Visit Comments Patient Comments pt agreeable to do PT Patient Goals to go home Therapy Pain Assessment Pain When Pain Assessed During Mobility Pain Present Pain Present Pain Reported Location Right Knee Intensity 5 Scale Used Numeric (1 - 10) Pain Management Techniques Apply Cold Re-positioning Timing of Activity with Medications M4 PT-IP Mobility and Gait Start: 10/24/18 11:03 Freq: NEEDED Status: Discharge Protocol: Document 10/24/18 09:55 AB (Rec: 10/24/18 11:14 AB [email or web address]) PT-Bed Mobility Assessment Supine to Sit Supine to Sit Standby Assistance Sit to Supine Sit to Supine Standby Assistance Scooting Scooting to Edge of Bed Standby Assistance Scooting Up and Down in Bed Standby Assistance PT-Transfer Assessment Sit to and From Stand Sit to and from Stand Standby Assistance Equipment Transfer Assistive Device Gait Belt Front Wheeled Walker Orthotic/Prosthetic Devices or Brace: No Transfers Transfer Destination Toilet Transfer Technique pt ambulated to the toilet using FWW Transfer Ability Level of Assist Standby Assistance Comments Mobility Comments Pt ambulatedto the toilet using FWW SBA and was able to maintain standing balance using FWW for support supervision while using the toilet. pt ambulated from the toilet to the sink using FWW SBA and was able to maintain standing balance SBA while doing handwashing. Gait Assessment Gait Gait Assistance Required: Standby Assistance Distance (Feet) 125 Able to Maintain Weight Bearing Status Yes During Gait Assistive Devices Assistive Device Gait Belt Front Wheeled Walker Orthotic/Prosthetic Devices or Brace: No Gait Deviations General Gait Pattern Ataxic Factors Limiting Gait Function Factors Limiting Gait Function Decreased Strength Limited Range of Motion Pain Poor Balance Comments Gait Comments pt completed ambulation in hallway using FWW 125 ft x 2 SBA. occasional cues provided for safety and for pt to slow down. Stair Climbing Assessment Evaluation Level of Assist On Stairs Standby Assistance 1 Person Assistance Devices Stair Climbing Assistive Devices Right Railing Technique/Endurance Stair Climbing Direction Ascend and Descend Stair Climbing Technique Step to Step Number of Steps Climbed 3 Query Text: PT-Balance Assessment Sitting Balance and Reactions Static Sitting Balance Ability Good Dynamic Sitting Balance Ability Good Standing Balance and Reactions Static Standing Balance Ability Fair Dynamic Standing Balance Ability Fair Device Used FWW M5 PT-IP Objective Assessments Start: 10/24/18 11:03 Freq: NEEDED Status: Discharge Protocol: Document 10/24/18 09:55 AB (Rec: 10/24/18 11:14 AB [email or web address]) Orientation Orientation/Cognition Level of Alertness Alert Orientation Name Age Birthday Month Date Year Day of Week Place Situation Language Function Ability No Deficits Noted Safety Awareness Understands Safety Issues Memory Description No Deficits Noted Gross Range of Motion Lower Extremity ROM Assessment Right Impaired Impairments R knee flexion to 90 deg Strength Lower Extremity Strength Assessment Right Impaired Knee 4-/5 Sensation Assessment Sensation Gross Sensation WNL Muscle Tone Muscle Tone WNL Yes M6 PT-IP Treatment Start: 10/24/18 11:03 Freq: NEEDED Status: Discharge Protocol: Document 10/24/18 09:55 AB (Rec: 10/24/18 11:14 AB [email or web address]) Physical Therapy Treatment Exercises Exercises Heel Slides Education Education Provided Precautions Weight Bearing Status Post-Op Packet Safety M7 PT-IP Assessment and Plan Start: 10/24/18 11:03 Freq: NEEDED Status: Discharge Protocol: Document 10/24/18 09:55 AB (Rec: 10/24/18 11:14 AB [email or web address]) PT Summary Assessment and Plan Potential Rehabilitation Potential Good Status of Condition at Evaluation Stable Summary Impairments Pain ROM Strength Balance Coordination Sensation Tone Cognition Bed Mobility Transfers Gait Activity Tolerance Assessment Summary pt requiring SBA with mobility . pt will have spouse to assist him at home and stated that he has outpt PT already set up. pt may go home when medically stable. Goals Bed Mobility Goal Independent Transfer Goal Independent Front Wheeled Walker Gait Goal Independent Front Wheel Walker Gait Distance 300 Other Goals up/down 3 steps 1 rail mod I Days to Meet Goals 3 Frequency of Treatment Frequency Of Treatment Twice a Day Treatment Plan Physical Therapy Treatment Plan Bed Mobility Training Transfer Training Gait Training Therapeutic Exercise Balance Retraining Post Op Education Discharge Planning Hot or Cold Pack Neuromuscular Re-ed Coordination Retraining Manual Therapy Recommendations To Nursing Amount of Assist Needed Standby Assistance Discharge Recommendations PT Discharge Recommendations Home with Assistance Outpatient PT
--- NOTE | 2018-10-24 10:52 | CM.DANOTE ---
DCP Assessment/Chart Review Patient is a 68 year old male who was admitted on 10/23/18 for scheduled orthopedic surgery. Pt has [facility] for insurance and his PCP is Dr. Jara. EMR was reviewed. Per Ortho PA, pt is medically stable to d/c home today pending PT eval. PT ordered and pending. Per RN, no concerns at this time. No bedside assessment at this time due to triage needs. Plan: SW to follow for PT eval and recommendations towards likely pt d/c home today. STANTON Chao
== END 2018-10-24 11:13 | disposition home or self-care (01) ==
LOC: OR 12:00 → AC 12:03
PROVIDERS: Family Provider Family Medicine; PCP Family Medicine; Visit Provider Orthopaedic Surgery
PROC: 0SRC0JZ Replacement of Right Knee Joint with Synthetic Substitute, Open Approach (ICD-10-PCS; CPT 27447; principal; 2018-10-23 14:00)
DX: M17.11 Unilateral primary osteoarthritis, right knee (principal); I25.2 Old myocardial infarction; I25.10 Atherosclerotic heart disease of native coronary artery without angina pectoris
CPT/HCPCS: 27447; 36415; 73560; 85014; 85018; 94760; 94762; 97161; 97530; C1776; C9290; J0690; J2250; J2704; J3010

== ENCOUNTER → 2018-10-28 16:06 | Outpatient (CLI) | payer OTHER, SELFPAY ==
[2018-10-23 16:00] VITALS: BMI 30.7
--- NOTE | 2018-10-28 16:08 | DI.US.S_ITS ---
PROCEDURE: US PERIPH VENOUS LOW EXTREM RT INDICATIONS: RIGHT CALF PAIN 5 DAYS POST OP TECHNIQUE: Real-time imaging, as well as color and pulse Doppler interrogation, were performed of the lower extremity deep veins from the inguinal ligament to the popliteal fossa. COMPARISON: None. FINDINGS: The deep veins are normally compressible, and free of intraluminal thrombus. Color and pulse Doppler demonstrate normal phasic intraluminal flow. There is normal augmentation response to distal compression maneuver. A 9.5 x 2.3 x 3.7 cm complex fluid collection is noted in the right popliteal fossa. IMPRESSION: No evidence of deep vein thrombosis involving the right lower extremity. Dictated by: Iram Sutton MD, PhD on 10/28/2018 at 16:56 Approved by: Iram Sutton MD, PhD on 10/28/2018 at 16:57
== END ==
PROVIDERS: Family Provider Family Medicine; PCP Family Medicine; Visit Provider Orthopaedic Surgery
DX: M79.661 Pain in right lower leg (principal)
CPT/HCPCS: 93971

== ENCOUNTER → 2019-01-11 10:46 | Outpatient (CLI) | payer OTHER, SELFPAY ==
[2018-10-23 16:00] VITALS: BMI 30.7
--- NOTE | 2019-01-11 | DI.MRI.S_ITS ---
PROCEDURE: MR ANKLE RT WO CON INDICATIONS: R ANKLE PAIN TECHNIQUE: Noncontrast sagittal T1 spin echo and T2 fast spin echo with fat saturation, axial proton density fast spin echo and T2 fast spin echo with fat saturation, coronal T1 spin echo and T2 fast spin echo with fat saturation through the ankle/hindfoot. COMPARISON: None. FINDINGS: Image quality: Excellent. Bones and joints: No bone marrow contusions or fractures. No hindfoot coalitions. No osteochondral injuries of the talar dome. No pathologic joint effusions. Mild ankle soft tissue swelling is seen. Medial structures: The posterior tibialis, flexor digitorum longus, and flexor hallucis longus tendons are mildly thickened with moderate amount of fluid distending tendon sheaths consistent with tenosynovitis. No evidence of flexor tendon rupture.. The posterior tibial neurovascular bundle appears normal within the tarsal tunnel, without extrinsic mass effect. The deep layer (anterior and posterior tibiotalar ligaments) of the deltoid ligament and appears thickened with internal heterogeneous fluid signal consistent with ligamentous sprain and partial thickness tear. The superficial layer (tibionavicular, tibiospring, and tibiocalcaneal ligaments) of the deltoid ligament appear normal. The spring ligament components (superomedial calcaneonavicular, medioplantar oblique calcaneonavicular, and inferoplantar longitudinal ligaments) are thickened suggestive of spring ligament complex sprain. Lateral structures: The anterior talofibular, calcaneofibular, and posterior talofibular ligaments appear intact. More superiorly, the anterior and posterior tibiofibular ligaments appear intact, as is the intermalleolar ligament. The tibiofibular syndesmosis is normal in width at 2 mm or less. The peroneus longus and brevis tendons demonstrate normal location and morphology. Adjacent bony peroneal tubercle and retrotrochlear prominence are normal in size. The sinus tarsi demonstrates normal fatty signal, without edema, fibrosis, or cyst formation. Visualized sinus tarsi components (cervical ligament, interosseous talocalcaneal ligament, roots of the inferior extensor retinaculum) appear normal. The calcaneonavicular and calcaneocuboid components of the bifurcate ligament appear intact. The dorsal calcaneocuboid ligament appears intact. Anterior structures: The tibialis anterior, extensor hallucis longus, and extensor digitorum longus tendons appear intact. The dorsal talonavicular ligament appears intact. Posterior and plantar structures: Achilles tendon is intact. Medial and lateral bands of the plantar fascia are of normal thickness. No abductor digiti quinti muscle atrophy to suggest Sanz neuropathy. IMPRESSION: 1. Finding is suggestive of tenosynovitis involving flexor tendons. No evidence of flexor tendon tear. 2. Sprain/lobe intrasubstance partial-thickness tear involving deep fibers of deltoid ligament and spring ligament complex. 3. Other ankle tendons and ligaments are intact. 4. No marrow edema. No fracture or dislocation. Dictated by: Boy Walsh M.D. on 01/13/2019 at 8:19 Approved by: Boy Walsh M.D. on 01/13/2019 at 8:48
== END ==
PROVIDERS: Family Provider Family Medicine; PCP Family Medicine; Visit Provider Orthopaedic Surgery Foot and Ankle Surgery
DX: M25.571 Pain in right ankle and joints of right foot (principal); S93.421A Sprain of deltoid ligament of right ankle, initial encounter
CPT/HCPCS: 73721

== ENCOUNTER → 2019-04-02 10:38 | Outpatient (CLI) | payer OTHER, SELFPAY ==
[2018-10-23 16:00] VITALS: BMI 30.7
[2019-04-02 12:01] LABS: Add Manual Diff / Slide Review NO; Basophils Absolute Auto 100 /uL (0-100); Eosinophils Absolute Auto 200 /uL (0-450); Eosinophils Percent Auto 3.7 % (2-4); Hematocrit 45.4 % (41-53); Hemoglobin 15.2 g/dL (13.5-17.5); Lymphocytes Absolute Auto 1700 /uL (1100-4500); Mean Corpuscular HGB Conc 33.4 % (30-36); Mean Corpuscular Hemoglobin 30.7 PG (26-34); Mean Corpuscular Volume 91.9 fL (80-100); Monocytes Absolute Auto 700 /uL (0-900); Monocytes Percent Auto 12.9 % (3-14); Neutrophils Absolute Auto 3000 /uL (1500-7000); Neutrophils Percent Auto 52.4 % (50-75); Platelet Count 209 X10^3/uL (150-400); Red Blood Cell Count 4.94 X10^6/uL (4.5-5.9); Red Cell Distribution Width 14.4 % (11.6-14.8); White Blood Cell Count 5.8 X10^3/uL (4.5-11.0)
[2019-04-02 12:38] LABS: BUN Creatinine Ratio 17.5 (6-22); Blood Urea Nitrogen 14 mg/dL (9-20); Calcium 9.5 mg/dL (8.4-10.2); Carbon Dioxide 26 mmol/L (22-32); Chloride 105 mmol/L (98-107); Estimated Glomerular Filt Rate > 60.0 mL/min (>60); Glucose 95 mg/dL (80-110); HEMOLYSIS < 15 (0-50); Potassium 4.5 mmol/L (3.4-5.1); Sodium 139 mmol/L (137-145)
== END ==
PROVIDERS: PCP Family Medicine; Visit Provider Internal Medicine Cardiovascular Disease
DX: I48.0 Paroxysmal atrial fibrillation (principal)
CPT/HCPCS: 36415; 80048; 85025

== ENCOUNTER → 2019-04-24 10:29 | Outpatient (CLI) | payer OTHER, SELFPAY ==
[2018-10-23 16:00] VITALS: BMI 30.7
[2019-04-24 11:09] LABS: BUN Creatinine Ratio 17.5 (6-22); Blood Urea Nitrogen 14 mg/dL (9-20); Calcium 9.3 mg/dL (8.4-10.2); Carbon Dioxide 29 mmol/L (22-32); Chloride 103 mmol/L (98-107); Cholesterol 126 mg/dL (140-199); Estimated Glomerular Filt Rate > 60.0 mL/min (>60); Glucose 93 mg/dL (80-110); HDL Cholesterol 32 mg/dL (40-60); HEMOLYSIS 16 (0-50); LDL Cholesterol Calculated 68 mg/dL (<100); Potassium 4.6 mmol/L (3.4-5.1); Sodium 137 mmol/L (137-145); Triglycerides 129 mg/dL (35-150)
--- NOTE | 2019-04-24 11:15 | DI.CT.S_ITS ---
PROCEDURE: CT ANGIO ABDOMEN PELVIS INDICATIONS: Abdominal aortic aneurysm, without rupture TECHNIQUE: After the administration of intravenous contrast, 2.5 mm thick sections acquired from the diaphragm to the symphysis. 10 mm maximum-intensity projection (MIP) reformats were then acquired. For radiation dose reduction, the following was used: automated exposure control. COMPARISON: [facility] Ultrasound, US, US AORTA RETROPERITONEAL LIMITED, 03/31/2019, 8:33. FINDINGS: Image quality: Excellent. Aorta: 8 previously identified [id number] abdominal aortic aneurysm is again noted, and at the axial level of the inferior mesenteric artery origin maximal AP and transverse dimensions are 5.4 x 5.8 cm. Mesenteric arteries: Celiac trunk, superior and inferior mesenteric arteries appear patent. Right pelvic arteries: No aneurysm found. Left pelvic arteries: No aneurysm found. Extravascular soft tissues: Lung bases are clear. Heart size is normal. Liver is normal in size and enhancement. Gallbladder appears normal the. Biliary system is non dilated. Pancreas enhances normally. Spleen is normal in size and enhancement. No adrenal nodules. Kidneys are normal in size and enhancement, without hydronephrosis. Non opacified bowel loops are normal in wall thickness and caliber. No free fluid or air. No retroperitoneal or mesenteric adenopathy. No ventral hernias. No suspicious bony lesions. No vertebral body compression fractures. IMPRESSION: The fusiform [id number] abdominal aortic aneurysm has not increased in maximal axial dimension. It measures approximately 5.4 cm AP and 5.8 cm transverse. There is no sign of perianeurysmal fibrosis or aneurysm leak. Presumably vascular surgical consultation has been obtained to assist in establishing protocol for followup for this particular patient. Sequential aortic ultrasound at yearly intervals is anticipated. Dictated by: Damian Pascual M.D. on 04/24/2019 at 13:29 Approved by: Damian Pascual M.D. on 04/24/2019 at 13:34
[2019-04-24 11:39] LABS: Add Manual Diff / Slide Review NO; Basophils Absolute Auto 100 /uL (0-100); Basophils Percent Auto 1.3 % (0-2); Eosinophils Absolute Auto 200 /uL (0-450); Eosinophils Percent Auto 3.4 % (2-4); Hematocrit 46.2 % (41-53); Hemoglobin 15.4 g/dL (13.5-17.5); Lymphocytes Absolute Auto 1800 /uL (1100-4500); Lymphocytes Percent Auto 27.6 % (25-40); Mean Corpuscular HGB Conc 33.3 % (30-36); Mean Corpuscular Hemoglobin 30.9 PG (26-34); Mean Corpuscular Volume 92.9 fL (80-100); Monocytes Absolute Auto 600 /uL (0-900); Monocytes Percent Auto 9.7 % (3-14); Neutrophils Absolute Auto 3700 /uL (1500-7000); Platelet Count 228 X10^3/uL (150-400); Red Blood Cell Count 4.97 X10^6/uL (4.5-5.9); Red Cell Distribution Width 14.4 % (11.6-14.8); White Blood Cell Count 6.4 X10^3/uL (4.5-11.0)
== END ==
PROVIDERS: Visit Provider Internal Medicine Cardiovascular Disease
DX: I71.4 Abdominal aortic aneurysm, without rupture (principal); I48.0 Paroxysmal atrial fibrillation; E78.5 Hyperlipidemia, unspecified
CPT/HCPCS: 36415; 74174; 80048; 80061; 85025; Q9967

== ENCOUNTER → 2019-07-30 12:12 | Outpatient (CLI) | payer OTHER, SELFPAY ==
[2018-10-23 16:00] VITALS: BMI 30.7
--- NOTE | 2019-07-30 | DI.CT.S_ITS ---
PROCEDURE: CT ANGIO ABDOMEN PELVIS INDICATIONS: Presence of other vascular implants and grafts TECHNIQUE: After the administration of intravenous contrast, 2.5 mm thick sections acquired from the diaphragm to the symphysis. 10 mm maximum-intensity projection (MIP) reformats were then acquired. For radiation dose reduction, the following was used: automated exposure control. COMPARISON: [facility], CT, CT ANGIO ABDOMEN PELVIS, 04/24/2019, 11:20. FINDINGS: Image quality: Excellent. Aorta: Patient is status post aortoiliac stent-graft placement. There is consequent thrombosis of the abdominal aortic aneurysm lumen, which currently measures 62 mm transverse short axis (previously measuring 56 mm in the same plane). There is a small focus of present post contrast-enhancement within the posterior inferior aspect of the aneurysm sac, measuring 18 mm (series 5 images 106-107), adjacent to the L4 lumbar artery origins. Mesenteric arteries: Celiac trunk, superior and inferior mesenteric arteries appear patent. Right pelvic arteries: Common, internal, and external iliac arteries are patent. Common, proximal profunda, and proximal superficial femoral arteries are patent. Left pelvic arteries: Common, internal, and external iliac arteries are patent. Common, proximal profunda, and proximal superficial femoral arteries are patent. Extravascular soft tissues: Lung bases are clear. Heart size is normal. Liver is normal in size and enhancement. Gallbladder is within normal limits. Biliary system is non dilated. Pancreas enhances normally. Spleen is normal in size and enhancement. No adrenal nodules. Kidneys are normal in size and enhancement, without hydronephrosis. Non opacified bowel loops are normal in wall thickness and caliber. No free fluid or air. No retroperitoneal or mesenteric adenopathy. No ventral hernias. No suspicious bony lesions. No vertebral body compression fractures. IMPRESSION: 1. Aortoiliac stent-graft placement. 2. 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 There is associated increase in aneurysm sac size. Confirmation should be obtained with noncontrast CT examination, to confirm that the high density within the aneurysm sac actually represents enhancement. Dictated by: Estela Sepulveda M.D. on 07/30/2019 at 15:51 Approved by: Estela Sepulveda M.D. on 07/30/2019 at 15:59
[2019-07-30 14:03] LABS: BUN Creatinine Ratio 17.5 (6-22); Blood Urea Nitrogen 14 mg/dL (9-20); Estimated Glomerular Filt Rate > 60.0 mL/min (>60)
== END ==
PROVIDERS: Visit Provider Thoracic Surgery (Cardiothoracic Vascular Surgery)
DX: I71.4 Abdominal aortic aneurysm, without rupture (principal); I74.09 Other arterial embolism and thrombosis of abdominal aorta; Z95.828 Presence of other vascular implants and grafts
CPT/HCPCS: 36415; 74174; 82565; 84520; Q9967

== ENCOUNTER → 2020-04-05 11:10 | Outpatient (CLI) | payer OTHER, SELFPAY ==
[2018-10-23 16:00] VITALS: BMI 30.7
--- NOTE | 2020-04-05 | DI.CT.S_ITS ---
PROCEDURE: CT ANGIO ABDOMEN PELVIS INDICATIONS: Abdominal aortic aneurysm, without rupture TECHNIQUE: Non-contrast 3 mm thick sections acquired from the diaphragm to the symphysis. After the administration of intravenous contrast, 2.5 mm thick sections acquired from the diaphragm to the symphysis during the arterial and venous phases. 10 mm maximum intensity projection (MIP) reformats were acquired of the arterial phase images. For radiation dose reduction, the following was used: automated exposure control. COMPARISON: [facility], CT, CT ANGIO ABDOMEN PELVIS, 07/30/2019, 14:06. FINDINGS: Image quality: Excellent. Vascular structures: Again noted is the presence of an aorta bi-iliac endograft treating an abdominal aortic aneurysm. On the previous study there was a question of a type 2 endoleak. No precontrast images had been obtained, and there was some high density within the aneurysm sac, and the aneurysm sac had increased in size. The current study is performed with and without contrast. The high density within the aneurysm sac is present on precontrast imaging . No endoleak is identified. However, note is made of the development of bilateral interval hyperplasia within the proximal bilateral iliac limbs, left greater than right, with a left-sided stenosis perhaps measuring up to 50%. The size of the aneurysm sac appears slightly diminished in size on the current study compared to the previous study. On previous image 99/5 it measured 6.2 x 5.5 centimeters. On current image 80/5 it measures 6.0 x 5.3 centimeters. The bilateral external iliacs and common femorals are patent. Severe proximal celiac stenosis. SMA widely patent. B[place] occluded. \ Extravascular structures: Lung bases are clear. Stable cardiomegaly. Liver is normal in size and enhancement. Gallbladder is unremarkable. Biliary system is non dilated. Pancreas enhances normally. Spleen is normal in size and enhancement. No adrenal nodules. Kidneys are normal in size and enhancement, without hydronephrosis. Non-opacified bowel loops demonstrate normal wall thickness and caliber. No free fluid or air. No retroperitoneal or mesenteric adenopathy. No ventral hernias. No suspicious bony abnormalities. No vertebral body compression fractures. Mild bladder wall thickening. Prostate enlargement. Right inguinal hernia containing fat. IMPRESSION: 1. Status post endograft repair of abdominal aortic aneurysm with no evidence of endoleak and slight interval decrease in size of excluded aneurysm sac. 2. Interval development of bilateral proximal iliac limb intimal hyperplasia, with a narrowing of up to 50% of the proximal left iliac limb noted. Dictated by: Saturnino Talavera M.D. on 04/05/2020 at 16:06 Approved by: Saturnino Talavera M.D. on 04/05/2020 at 16:22
[2020-04-05 11:50] LABS: BUN Creatinine Ratio 18.2 (6-22); Blood Urea Nitrogen 14 mg/dL (9-20); Estimated Glomerular Filt Rate > 60.0 mL/min (>60)
== END ==
PROVIDERS: PCP Student in an Organized Health Care Education/Training Program; Referring Provider Thoracic Surgery (Cardiothoracic Vascular Surgery); Visit Provider Thoracic Surgery (Cardiothoracic Vascular Surgery)
DX: I71.4 Abdominal aortic aneurysm, without rupture (principal); I77.1 Stricture of artery; I51.7 Cardiomegaly
CPT/HCPCS: 36415; 74174; 82565; 84520; Q9967

== ENCOUNTER → 2020-07-22 12:46 | Outpatient (CLI) | payer OTHER, SELFPAY ==
[2018-10-23 16:00] VITALS: BMI 30.7
--- NOTE | 2020-07-22 | DI.US.S_ITS ---
PROCEDURE: US ABDOMEN LIMITED INDICATIONS: Lower abdominal pain, unspecified TECHNIQUE: Real-time focused scanning was performed of the abdomen, with image documentation. COMPARISON: None. FINDINGS: No right inguinal hernia or other right groin abnormalities. IMPRESSION: No inguinal hernia or other groin abnormality seen. Dictated by: David Hernandez [facility] Interpreted: Boy Walsh MD on 07/22/2020 at 13:18 Approved by: Boy Walsh M.D. on 07/23/2020 at 12:49
== END ==
PROVIDERS: PCP Student in an Organized Health Care Education/Training Program; Referring Provider Student in an Organized Health Care Education/Training Program; Visit Provider Student in an Organized Health Care Education/Training Program
DX: R10.30 Lower abdominal pain, unspecified (principal)
CPT/HCPCS: 76705

== ENCOUNTER → 2020-08-05 10:12 | Outpatient (CLI) | payer OTHER, SELFPAY ==
[2018-10-23 16:00] VITALS: BMI 30.7
--- NOTE | 2020-08-05 10:15 | DI.RAD.S_ITS ---
PROCEDURE: XR HIP W PEL IF DONE RT 2V INDICATIONS: RT HIP PAIN TECHNIQUE: 2 views of the right hip were acquired. COMPARISON: None. FINDINGS: Bones: No fractures or dislocations. No suspicious bony lesions. The visualized pelvic ring appears intact. Mild right hip osteoarthritic degenerative changes. Soft tissues: No suspicious soft tissue calcifications or masses. IMPRESSION: Mild right hip osteoarthritis. Dictated by: Iram Sutton MD, PhD on 08/05/2020 at 16:42 Approved by: Iram Sutton MD, PhD on 08/05/2020 at 16:43
== END ==
PROVIDERS: PCP Student in an Organized Health Care Education/Training Program; Referring Provider Student in an Organized Health Care Education/Training Program; Visit Provider Student in an Organized Health Care Education/Training Program
DX: M25.551 Pain in right hip (principal); M16.11 Unilateral primary osteoarthritis, right hip
CPT/HCPCS: 73502

== ENCOUNTER → 2020-08-11 10:53 | Outpatient (CLI) | payer OTHER, SELFPAY ==
[2018-10-23 16:00] VITALS: BMI 30.7
--- NOTE | 2020-08-11 | DI.CT.S_ITS ---
PROCEDURE: CT ABDOMEN PELVIS WO/W CON INDICATIONS: Right lower quadrant pain TECHNIQUE: Optional 5 mm thick noncontrast images acquired from the diaphragm to the symphysis pubis. After the administration of intravenous contrast, 5 mm thick images acquired from the diaphragm to the symphysis pubis after a 10-minute delay. 2 mm thick coronal and sagittal reformats were then performed of the kidneys and ureters. For radiation dose reduction, the following was used: automated exposure control, adjustment of mA and/or kV according to patient size. COMPARISON: [facility], CT, CT ANGIO ABDOMEN PELVIS, 04/05/2020, 11:22. FINDINGS: Image quality: Excellent. Lung bases: Lung bases are clear. Heart size is normal. Urinary system: Both kidneys are normal in size, without hydronephrosis or nephrolithiasis on pre-contrast images. No perinephric fat stranding. There is normal bilateral renal enhancement. Renal calyces appear normal in morphology when filled with contrast. Opacified portions of both ureters demonstrate normal caliber. Prostate is enlarged. Bladder wall is minimally thickened. No calcified bladder stones. Other solid organs: Liver is normal in size and enhancement. Gallbladder is unremarkable . Biliary system is non dilated. Pancreas enhances normally. Spleen is normal in size and enhancement. No adrenal nodules. Peritoneum and bowel: Bowel loops demonstrate normal wall thickness and caliber. No free fluid or air. Normal appendix. Nodes and vessels: No retroperitoneal or mesenteric adenopathy by size criteria. Again noted is aorto bi-iliac endograft treatment of an abdominal aortic aneurysm. There is continued further shrinkage of the aneurysm sac, most recently measuring 6.0 x 5.5 cm in currently measuring 4.8 x 5.2 cm. The technique utilized for the current study does not time the imaging according to the arterial phase of contrast enhancement. The current techniques raise the question of thrombosis of the right iliac limb. On all postcontrast images, the right iliac limb appears to have a lower density than the left iliac limb, as well as a lower density than the internal and external iliac arteries inferior to the inferior aspect of a endograft. Abdominal wall: No ventral hernias. Pelvis: No pathologic free pelvic fluid. Small right inguinal hernia containing fat. No inguinal adenopathy. Bones: No suspicious bony lesions. No vertebral body compression fractures. IMPRESSION: 1. Further interval increase in size of aneurysm sac post endovascular repair of abdominal aortic aneurysm. 2. The right iliac limb of the endograft may have thrombosed. Consider repeat CT angiogram of the abdomen and pelvis to evaluate patency of the right iliac limb. 3. Small right inguinal hernia containing fat. 4. Prostate enlargement. Dictated by: Saturnino Talavera M.D. on 08/11/2020 at 13:08 Approved by: Saturnino Talavera M.D. on 08/11/2020 at 13:16
== END ==
PROVIDERS: PCP Student in an Organized Health Care Education/Training Program; Referring Provider Student in an Organized Health Care Education/Training Program; Visit Provider Student in an Organized Health Care Education/Training Program
DX: K40.90 Unilateral inguinal hernia, without obstruction or gangrene, not specified as recurrent (principal); N40.0 Benign prostatic hyperplasia without lower urinary tract symptoms
CPT/HCPCS: 74178; Q9967

== ENCOUNTER → 2020-08-12 11:33 | Outpatient (CLI) | payer OTHER, SELFPAY ==
[2018-10-23 16:00] VITALS: BMI 30.7
--- NOTE | 2020-08-12 | DI.CT.S_ITS ---
PROCEDURE: CT ANGIO ABDOMEN PELVIS INDICATIONS: Abdominal aortic aneurysm, without rupture TECHNIQUE: Non-contrast 3 mm thick sections acquired from the diaphragm to the symphysis. After the administration of intravenous contrast, 2.5 mm thick sections acquired from the diaphragm to the symphysis during the arterial and venous phases. 10 mm maximum intensity projection (MIP) reformats were acquired of the arterial phase images. For radiation dose reduction, the following was used: automated exposure control. COMPARISON: [facility], CT, CT ABDOMEN PELVIS WO/W CON, 08/11/2020, 11:31. [facility], CT, CT ANGIO ABDOMEN PELVIS, 04/05/2020, 11:22. FINDINGS: Image quality: Excellent. Vascular structures: The aorta has an aortobifemoral stent graft. The right leg of the stent graft is occluded with reconstitution distally from the right internal iliac to the right external iliac artery. There is also in stent stenosis of the left iliac leg causing approximately 40 percent stenosis. Aneurysmal sac measures 5.6 centimeters in maximal axial dimension, unchanged compared to prior study on 04/05/2020. There is a type 2 endoleak likely from lumbar arteries at the level of L4. VISUALIZED LOWER CHEST: Lungs and pleura: No acute air space opacities. No pleural effusions or pneumothorax. Mediastinum: Heart size is normal. No pericardial effusion no hiatal hernia. ABDOMEN: Solid organs: Liver: The liver has no mass or intrahepatic biliary ductal dilatation. Biliary: The gallbladder has no gallstones, pericholecystic fluid, gallbladder wall thickening, or surrounding inflammatory change. Pancreas: The pancreas has no mass or ductal dilatation. There is no surrounding inflammation. Spleen: Normal size. There are no masses. Adrenals: No hypertrophy or nodules. Kidneys: No obstructive calculus or hydronephrosis. No solid mass. There is a 2 centimeter cyst of the left kidney. Bowel: The distal esophagus and stomach are normal. The small bowel has a normal caliber and appearance. The terminal ileum is normal. The large bowel has a normal caliber and appearance. The appendix is normal. No free fluid or air. Lymph nodes: No retroperitoneal or mesenteric adenopathy or mass. Abdominal wall: Fat containing right inguinal hernia. PELVIS: Genitourinary: The bladder has no wall thickening or mass. No bladder calcifications. The prostate is enlarged with asymmetric enhancement of the right aspect of the prostate. Miscellaneous: No inguinal hernias or adenopathy. Bones and abdominal wall: No suspicious bony lesions. No vertebral body compression fractures. IMPRESSION: 1. Occlusion of the right leg of the aorta bi-iliac stent graft with distal reconstitution of the right external iliac artery via the right internal iliac artery. 2. Type 2 endoleak at the level of L4 just above the bifurcation likely from lumbar arteries. 3. Stable aneurysmal sac size since 04/05/2020. Findings were discussed with Dr. Jj at 12:36 p.m. On 08/12/2020. Dictated by: Amilcar Botello M.D. on 08/12/2020 at 12:08 Approved by: Amilcar Botello M.D. on 08/12/2020 at 12:36
== END ==
PROVIDERS: PCP Student in an Organized Health Care Education/Training Program; Referring Provider Student in an Organized Health Care Education/Training Program; Visit Provider Student in an Organized Health Care Education/Training Program
DX: I71.4 Abdominal aortic aneurysm, without rupture (principal)
CPT/HCPCS: 74174; Q9967

== ENCOUNTER → 2020-12-02 15:16 | Outpatient (CLI) | payer MEDICARE, SELFPAY ==
[2018-10-23 16:00] VITALS: BMI 30.7
[2020-12-02] MEDS: COVID-19 VACC, Ad26(JANSSEN)/PF 0.5 ML IM (15:27)
== END ==
PROVIDERS: PCP Student in an Organized Health Care Education/Training Program; Visit Provider Internal Medicine
DX: Z23 Encounter for immunization (principal)
CPT/HCPCS: 0031A; 91303